=== PATIENT | female | born 1970 | race Two or more races ===

== ENCOUNTER → 2024-07-04 | Outpatient (CLI) | payer OTHER, SELFPAY ==
[2024-07-04 17:39] LABS: Glucose Estimated Average 180 mg/dL (80-131); Hemoglobin A1C 7.9 % Hgb (4.8-6.0); Parathyroid Hormone Intact 38.3 pg/ml (18.5-88.0)
[2024-07-04 17:41] LABS: Alanine Aminotransferase 25 U/L (10-49); Albumin/Globulin Ratio 1.9 (1.2-2.2); Alkaline Phosphatase 94 U/L (46-116); Anion Gap 10 (7-16); Aspartate Amino Transferase 18 U/L (0-34); BUN/Creatinine Ratio 38 Ratio (12-20); Bilirubin,Total 0.3 mg/dL (0.3-1.2); Blood Urea Nitrogen 45 mg/dL (9-23); Calcium 9.1 mg/dL (8.3-10.6); Calcium (Corrected) 9.1 mg/dL (8.5-10.1); Carbon Dioxide 26.6 mMol/L (20.0-31.0); Cardiac Risk Estimate 3.8 RATIO (3.7-5.6); Chloride 109 mMol/L (98-107); Cholesterol 164 mg/dL (132-200); Creatinine (Component) 1.2 mg/dL (0.6-1.3); Globulin 2.1 gm/dL (2.3-3.5); Glucose 190 mg/dL (74-106); HDL Cholesterol 43 mg/dL (40-60); LDL Cholesterol,Calculated 42 mg/dL (0-130); Osmolality,Calculated 307 (275-295); Potassium 3.5 mMol/L (3.4-5.1); Sodium 146 mMol/L (136-145); Total Protein 6.1 gm/dL (5.7-8.2); Triglycerides 393 mg/dL (30-150); eGFR 54 See Note
[2024-07-04 18:02] LABS: Folate 14.72 ng/mL (>5.38); Vitamin B12 > 2000 pg/mL (211-911)
== END | disposition home or self-care (01) ==
PROVIDERS: PCP Specialist; Referring Provider Specialist; Visit Provider Specialist
DX: E11.69 Type 2 diabetes mellitus with other specified complication (principal); E55.9 Vitamin D deficiency, unspecified; D51.1 Vitamin B12 deficiency anemia due to selective vitamin B12 malabsorption with proteinuria
CPT/HCPCS: 36415; 80053; 80061; 82043; 82306; 82570; 82607; 82746; 83036; 83970

== ENCOUNTER 2024-07-05 12:39 | Inpatient (IN) | payer OTHER, SELFPAY ==
[2024-07-05] VITALS (34 sets, daily range): BP systolic 66–170; BP diastolic 44–87; PULSE 79–96; RESP 10–25; TEMP 35–37.3; O2SAT 0–100; BMI 30.9
[2024-07-05] MEDS: SODIUM CHLORIDE 0.9% 1000 ML 1,000 ML 999 ML IV ×2 (12:45→13:19)
--- NOTE | 2024-07-05 12:45 | PC.NURSE ---
ND BIBA; PER EMS REPORT, PT COMING IN FORM HOME S/P AMS; PT WAS NORMAL GS 15 AT 0900 BEFORE GOING TO SLEEP BUT WHEN AMILY TRIED TO WAKE PT UP AT 1200, PT WAS UNRESPONSIVE EVEN TO PAINFUL STIMULI. PT CURRENTLY A GCS OF 3. PT SATTING AT 95% ON 15L NRB. PT'S FSBS IS 292. PT HAS PMH OF HYPERTENSION, DM, L BKA, AND NEUROPATHY. WE GAVE PT 2MG OF NARCAN INTRANASAL- NOT EFFECTIVE. UPON ARRIVAL, PT IS STILL GCS OF 3. DR. LEVINE AT BEDSIDE GIVING ORDERS FOR INTUBATION. ED TEAM AT BEDSIDE.
[2024-07-05] MEDS: ETOMIDATE INJ 2 MG/ML VIAL 10 ML 20 MG IVP (12:48)
[2024-07-05] MEDS: ROCURONIUM INJ 10 MG/ML VIAL 10 ML 70 MG IVP (12:49)
--- NOTE | 2024-07-05 12:57 | EDNOTE_ITS ---
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 According to the paramedics, the family found the patient unresponsive in her room around noon today. On their arrival, the patient was a GCS of 3 and was breathing on her own with a respiratory rate of 10. She was placed on a 15L oxygen mask and O2 was 95%. Prehospital vital signs included a BS 292, blood pressure of 106/64, and HR of 94. The family reported that the patient?s baseline is to be awake, alert, and conversive with a GCS of 15. The last time the patient was reported to be up, walking, and talking was at approximately 08:00 AM. Family noted that the patient went back to bed around 09:00 AM, with no additional symptoms or concerns reported at that time. 1430: Patients provides additional history. States at about 04:00 AM today patient had complained of feeling constipated and was given milk of magnesia and olive oil. States at about 09:00 AM felt to urge to have a bowel movement and went to the restroom. States at about 09:30 AM he heard a thud in the restroom and found the patient leaning to the side with her head against the counter. states during that time the patient was refusing to get off the toilet due to still having to urge to have a bowel movement. States patient remained sitting on the toilet and he had placed a pillow between her head and the counter. Reportedly checked on her periodically, about every 20-30 minutes, and patient had appeared well up until 11:50 AM where she no longer was talking or responding to her name. denied patient complaining of a headache while sitting on the toilet. Related Data Home Medications ?Medication ?Instructions ?Recorded ?Confirmed pregabalin 200 mg capsule (Lyrica) 200 mg PO Q8H 06/1504/04/23 glucagon 1 mg solution for See Rx Instructions .Route .COMPLEX 03/10/21 04/04/23 injection (Glucagon Emergency Kit) rosuvastatin 5 mg tablet (Crestor) 5 mg PO QDAY 04/04/23 Amanda Bruno U-300 Insulin 30 units subcut QAM DM 2 04/04/23 04/04/23 clonidine HCl 0.2 mg PO Q8HR hypertension 04/04/23 04/04/23 metformin 1,000 mg PO BID DM 2 4 04/04/23 oxycodone-acetaminophen 7.5 mg-325 1 tab PO Q6HR PRN l eg pain 04/04/23 04/04/23 mg tablet (Percocet) semaglutide 2 mg/dose (8 mg/3 mL) 2 mg subcut QWEEK DM 2 04/04/23 04/04/23 subcutaneous pen injector (Ozempic) Previous Rx's ?Medication ?Instructions ?Recorded baclofen 20 mg tablet 20 mg PO TID PRN Muscle Spas m #0 06/18/19 tabs carvedilol 25 mg tablet 25 mg PO BID #180 tabs 04/06 chlorthalidone 25 mg tablet 25 mg PO QDAY 90 days #90 tabs 04/06/23 zinc sulfate 50 mg zinc (220 mg) 50 mg PO QDAY #30 cap s 04/06/23 capsule olmesartan 40 mg tablet 40 mg PO QDAY #90 tabs 04/07 Allergies Allergy/AdvReac Type Severity Reaction Status Date / Time Sulfa (Sulfonamide Allergy Severe HIVES Verified 03/10/21 11:12 Antibiotics) Review of Systems Review of Systems ROS Unobtainable: unobtainable due to mental status Past Medical History Past Medical History NEUROLOGIC: Positive Neurological Disorders, Transient Ischemic Attacks (TIA), Peripheral Neuropathy, Migraine and Spinal Cord Injury CARDIAC: Positive Peripheral Vascular Disease, Hypercholesterolemia, Hypertension and Varicose Veins GASTROINTESTINAL: Positive Obesity REPRODUCTIVE: Positive Previous Pregnancies MUSCULOSKELETAL: Positive Musculoskeletal Disorders and Osteomyelitis ENDOCRINE: Positive Diabetes Mellitus Type 2 and Hypoglycemia HEMATOLOGIC: Positive Anemia PSYCHO/SOCIAL: Positive Psychiatric Problems and Anxiety OTHER HISTORY: Positive MRSA and Chicken Pox Surgical History SURGICAL: Positive Tubal Ligation Social History SMOKING STATUS: Unknown if ever smoked SUBSTANCE USE: prescription drug 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 MMM. clear conjunctiva, oropharynx clear. NECK: Supple without lymphadenopathy. No stiffness or restricted ROM. HEART: Normal rate and regular rhythm, normal S1/S1, no m/r/g LUNGS: CTAB, moving air well. No crackles or wheezes are heard. ABDOMEN: Soft, nondistended with good bowel sounds heard. EXTREMITIES: Left BKA. Without cyanosis, clubbing or edema. NEUROLOGICAL: Came in obtunded, unresponsive to painful stimuli Skin: Warm and dry without any rash. Course Course Course Narrative: 1248: Sepsis alert called overhead, rectal temperature 95F Quality Measures Current suspected stage: sepsis Possible source: unknown Blood cultures ordered: completed in ED Antibiotic ordered: Yes Pertinent labs: 07/05/24 07/05/24 13:01 13:10 Lactic Acid 3.8 H mMol/L (0.4-2.0) Procalcitonin 9.44 H ng/ml (0.0-0.49) sepsis Orders Category Date Time Status Bedside Blood Glucose NOW Care 07/05/24 12:56 Active EKG (ED ONLY) *Do not use* NOW Care 07/05/24 12:56 Completed Arango to Benedict Routine Care 07/05/24 12:57 Ordered Intubation NOW Care 07/05/24 12:56 Completed Monitor Temperature Q2H Care 07/05/24 16:15 Ordered Monitor Temperature Q2H Care 07/05/24 18:15 Ordered Monitor Temperature Q2H Care 07/05/24 20:15 Ordered Monitor Temperature Q2H Care 07/05/24 22:[address] cervical spine wo con Stat Exams 07/05/24 14:[address] chest abdomen pelvis wo Stat Exams 07/05/24 14:[address] head/brain wo con Stat Exams 07/05/24 14:02 Completed CXR [XR chest 1V post procedure] Stat Exams 07/05/24 13:14 Completed EKG (ED Only) Stat Exams 07/05/24 12:56 Ordered ABG [Arterial Blood Gas] Stat Lab 07/05/24 13:15 Completed Blood Culture (Lab) Stat Lab 07/05/24 13:01 Received CBC Stat Lab 07/05/24 13:01 Completed CMP [Comprehensive Metabolic Panel] Stat Lab 07/05/24 13:10 Completed Lactate (Lactic Acid) Stat Lab 07/05/24 13:01 Completed Lactic Acid, 3 HR Stat Lab 07/05/24 16:13 Ordered Lipase Stat Lab 07/05/24 13:10 Completed Occult Blood, Stool (LAB) Stat Lab 07/05/24 13:30 Completed Partial Thromboplastin Time Stat Lab 07/05/24 13:10 Completed Procalcitonin Stat Lab 07/05/24 13:10 Completed Prothrombin Time with INR Stat Lab 07/05/24 13:10 Completed Sputum Culture and Gram Stain Stat Lab 07/05/24 12:57 Ordered Troponin I Stat Lab 07/05/24 13:10 Completed Type and Screen Stat Lab 07/05/24 14:59 Received Urinalysis Stat Lab 07/05/24 13:52 Completed Etomidate Inj [Amidate Inj] Med 07/05/24 12:43 Discontinued 20 mg .ROUTE .STK-MED ONE Etomidate Inj [Amidate Inj] Med 07/05/24 13:16 Discontinued 20 mg IVP X1 ONE Norepinephrine/D5W 8mg/250ml [Levophed in D5W 8mg/250ml Med 07/05/24 15:14 Active ] 8 mg in 250 ml IV 0.05 mcg/kg/min Rocuronium Inj [Zemuron Inj] Med 07/05/24 12:45 Discontinued 100 mg .ROUTE .STK-MED ONE Rocuronium Inj [Zemuron Inj] Med 07/05/24 13:16 Discontinued 70 mg IVP X1 ONE Sodium Chloride 0.9% 1000 ml [Ns] 1,000 ml Med 07/05/24 12:55 Discontinued IV 999 mls/hr Sodium Chloride 0.9% 1000 ml [Ns] 1,000 ml Med 07/05/24 12:57 Discontinued IV 999 mls/hr Sodium Chloride Rt Terrie 10% [NS Rt Terrie 10%] Med 07/05/24 12:56 Discontinued 5 ml INH X1 ONE cefTRIAXone/D5w 1gm IV premix [Rocephin/D5w 1gm IV Med 07/05/24 12:55 Discontinued premix] 1 gm in 50 ml IV X1 Sputum Induction PRN RT 07/05/24 13:00 Ordered Ventilator [Volume Ventilator] Stat RT 07/05/24 Active Vital Signs Vital signs: Vital Signs Temperature 95.0 F L 07/05/24 12:45 Pulse Rate 88 07/05/24 12:45 Respiratory Rate 16 07/05/24 12:45 Blood Pressure 72/46 L 07/05/24 12:45 Pulse Oximetry (%) 100 07/05/24 12:45 Oxygen Delivery Method Mechanical Ventilation 07/05/24 12:45 Oxygen Flow Rate 60 07/05/24 12:45 Fraction of Inspired Oxygen 100 07/05/24 12:45 Procedures -ED Intubation sedative: Etomidate Mg Given: 20 paralytic: Rocuronium Mg Given: 70 Laryngoscope: Ezequiel ET Tube Size: 7.5 ET Tube Uncuffed: No Tube Secured Depth (cm): 23 Tube Secured Location: other (gum) Tube Placement Confirmation: visualized tube passing through cords, equal breath sounds bilaterally, no breath sounds over epigastrium and confirmation by capnometry Patient Tolerated Procedure: well and no complications Intubation Complications: none Altered Mental Status MDM Narrative MDM Narrative:: Nara Massey am scribing for and in the presence of Dr. Crane. 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 Sinus rhythm, rate 84, normal axis, normal intervals, no acute ischemic changes, no STEMI. ) Lab and/or radiology exams considered but not ordered:: None Interpretation Summary: Ordering Physician: Doron Crane MD Date of Service: 07/05/24 Procedure(s): XR chest 1V post procedure Accession Number(s): [id number] cc: Doron Crane MD; Chaka Romero MD~ Examination: AP chest single view Technique: AP portable supine chest single view Exam date and time: July 05, 2024 1321 hrs. Comparison April 14, 2023 Indications: Hypoxic respiratory failure post intubation Findings: The endotracheal tube is directed near the origin of the right mainstem bronchus Orogastric tube in the stomach satisfactory position Mild to moderate enlargement left ventricle Moderate vascular congestion. No aspiration pneumonia Impression: Recommend retracting the endotracheal tube 2 cm Dictated By:Chaka Romero MD Signed By:<Electronically signed by Chaka Romero MD in OV>07/05/24 1411 Ordering Physician: Doron Crane MD Date of Service: 07/05/24 Procedure(s): CT head/brain wo [facility] Accession Number(s): [id number] cc: Shivam Vivar MD; Doron Crane MD; Chaka Romero MD~ Examination: CT brain head without contrast. 2-D sagittal coronal reconstructions Date and time of exam:July 05, 2024 at 1541 hrs. Indications: Hypoxic respiratory failure, patient found down unconscious today CTDI: vol (mGy):55.3 DLP: (mGycm):1087 Technique: Multiple CT axial sections of the brain have been obtained, 5 mm slice thickness. Contrast has not been administered. 2-D sagittal, coronal reconstructions have been obtained Low dose protocols were performed. One or more of the following dose reduction techniques were used; automated exposure control, adjustment of the mA and/or KV according to patient size, use of iterative reconstruction technique. Findings: No significant ventricular enlargement. Low density areas in both cerebral hemispheres which appear chronic Intra-axial or extra-axial hemorrhage density is not seen. No mass effect or midline shift Basal cisterns are not remarkable. Fourth ventricle is midline. Cranial vault intact. Impression: Negative for acute hemorrhage, mass effect or midline shift Brain MRI follow-up would best assess for ischemic/anoxic change Dictated By:Chaka Romero MD Signed By:<Electronically signed by Chaka Romero MD in OV>07/05/24 1600 Ordering Physician: Doron Crane MD Date of Service: 07/05/24 Procedure(s): CT cervical spine wo con Accession Number(s): [id number] cc: Shivam Vivar MD; Doron Crane MD; Chaka Romero MD~ Examination: CT cervical spine without contrast 2-D sagittal reconstructions 2-D coronal reconstructions 3-D reconstructions. Exam date and time:02/04/2025 1541 hrs. Indications: Patient found down unconscious today neck pain CTDI:vol (mGy) 8.44 DLP: (mGycm) 170 Technique: Multiple 2 mm axial sections of the cervical spine have been obtained. The coronal and sagittal reconstructions have been obtained. 3-D reconstructions have been obtained. Low dose protocols were performed. One or more of the following dose reduction techniques were used; automated exposure control, adjustment of the mA and/or KV according to patient size, use of iterative reconstruction technique. Findings: Axial sections demonstrate intact base of the skull. C1 exhibit satisfactory relationship to the odontoid. No acute cervical vertebral body fracture seen. Alignment posterior spinous processes satisfactory. Marked disc narrowing with chronic wedging C5-C6 C5-C6 extruded ossified disc fragments left paracentral axial image 71, measuring 5 mm and central axillary 74, 5 mm producing severe spinal stenosis Impression: No acute cervical fracture. Severe acquired spinal stenosis C5-C6, recommend elective MRI cervical spine follow-up Dictated By:Chaka Romero MD Signed By:<Electronically signed by Chaka Romero MD in OV>07/05/24 1603 Ordering Physician: Doron Crane MD Date of Service: 07/05/24 Procedure(s): CT chest abdomen pelvis wo Accession Number(s): [id number] cc: Shivam Vivar MD; Doron Crane MD; Chaka Romero MD~ Examination: CT chest, without intravenous contrast. CT abdomen, without intravenous contrast. CT pelvis, without intravenous contrast. 2-D sagittal and coronal reconstructions. 3-D reconstructions. Date and time of exam:July 05, 2024 1543 hrs. Indications: Patient found down unconscious today, hypoxic respiratory failure, patient is diabetic CTDI vol (mgy) 13.9 DLP (MGycm)902 Technique: Multiple CT images, 3.0 mm slice thickness, obtained chest, abdomen, pelvis, with the high-resolution 64 slice scanner.. Sagittal and coronal 2-D reconstructions are obtained. 3-D reconstructions Low dose protocols were performed. One or more of the following dose reduction techniques were used; automated exposure control, adjustment of the mA and/or KV according to patient size, use of iterative reconstruction technique. Findings: 20 mm left thyroid nodule Thoracic aorta pulmonary arteries intact Significant calcification left main left anterior descending coronary artery No pneumothorax Bibasilar pneumonia consistent with aspiration pneumonia Orogastric tube in the stomach No liver or splenic lesion Absent gallbladder No pancreatic mass Nodular thickening left adrenal gland 13 mm common hepatic duct Mild renal parenchymal scar formation No renal or ureteral calculi, no hydronephrosis Normal appendix Abdominal aorta intact No free blood in the abdomen Anteverted uterus with uterine fundal calcifications Urinary bladder contracted around a Arango catheter, air density in the urinary bladder, clinical correlation advised Prominent osteopenia, advanced disc narrowing L5-S1 Old bilateral rib fractures, old sacral insufficiency fractures Impression: Bibasilar pneumonia, consider aspiration pneumonia Enlarged common hepatic duct, recommend hepatobiliary sonography follow-up Bilateral renal parenchymal scar formation Normal appendix No bowel obstruction or free air Dictated By:Chaka Romero MD Signed By:<Electronically signed by Chaka Romero MD in OV>07/05/24 8657 Medications / Prescriptions Medications or Prescriptions considered but not ordered:: None Medication administrations:: Medication Administration History Acetaminophen (Acetaminophen Supp 650 Mg Supp) 650 mg MI Q6HR PRN PRN Reason: Fever > 100.4 Stop: 08/04/24 16:38 Heparin Sodium (Porcine) (Heparin Sod Inj 5000 Unit/Ml Vial) 5,000 unit SC Q8HR MOOSE Stop: 07/19/24 21:59 Norepinephrine/Dextrose (Levophed In D5w 8mg/250ml) 8 mg in 250 mls @ 6.732 mls/hr IV .Q24H PRN; Protocol PRN Reason: PER PROTOCOL Stop: 08/04/24 15:13 Last Titration: 07/05/24 17:35 Dose: 0.15 mcg/kg/min, 20.195 mls/hr Documented By: Titration: 07/05/24 17:15 Dose: 0.15 mcg/kg/min, 20.195 mls/hr Documented By: Titration: 07/05/24 17:00 Dose: 0.15 mcg/kg/min, 20.195 mls/hr Documented By: Titration: 07/05/24 16:55 Dose: 0.15 mcg/kg/min, 20.195 mls/hr Documented By: Titration: 07/05/24 16:50 Dose: 0.15 mcg/kg/min, 20.195 mls/hr Documented By: Titration: 07/05/24 16:45 Dose: 0.15 mcg/kg/min, 20.195 mls/hr Documented By: Titration: 07/05/24 16:40 Dose: 0.15 mcg/kg/min, 20.195 mls/hr Documented By: Titration: 07/05/24 16:30 Dose: 0.13 mcg/kg/min, 17.502 mls/hr Documented By: Titration: 07/05/24 16:25 Dose: 0.11 mcg/kg/min, 14.81 mls/hr Documented By: Titration: 07/05/24 16:20 Dose: 0.09 mcg/kg/min, 12.117 mls/hr Documented By: Titration: 07/05/24 16:15 Dose: 0.07 mcg/kg/min, 9.424 mls/hr Documented By: Titration: 07/05/24 16:00 Dose: 0.07 mcg/kg/min, 9.424 mls/hr Documented By: Titration: 07/05/24 15:30 Dose: 0.07 mcg/kg/min, 9.424 mls/hr Documented By: Admin: 07/05/24 15:19 Dose: 0.05 mcg/kg/min, 6.732 mls/hr Documented By: BHARGAV Lactated Ringer's (Lactated Ringers) 1,000 mls @ 999 mls/hr IV .Q1H1M ONE Stop: 07/05/24 18:05 Last Admin: 07/05/24 17:35 Dose: 999 mls/hr Documented By: GM Piperacillin Sod/Tazobactam (Sod 4.5 gm/ Sodium Chloride) 100 mls @ 200 mls/hr IV Q8HR MOOSE Stop: 07/12/24 21:59 Vancomycin HCl 1,500 mg/ (Sodium Chloride) 500 mls @ 200 mls/hr IV X1 ONE Stop: 07/05/24 19:59 Pantoprazole Sodium (Pantoprazole Inj 40 Mg Vial) 40 mg IV QDAY MOOSE Stop: 08/04/24 17:14 Last Admin: 07/05/24 17:32 Dose: 40 mg Documented By: Pharmacy Consult (Vancomycin Pharmacy To Dose 1 Each Each) 1 each IV QDAY [facility] Stop: 08/04/24 17:14 Discontinued Medications Etomidate (Etomidate Inj 2 Mg/Ml Vial 10 Ml) Confirm Administered Dose 20 mg .ROUTE .STK-MED ONE Stop: 07/05/24 12:44 Last Admin: 07/05/24 13:19 Dose: Not Given Documented By: Non-Admin Reason: Duplicate Medication on eMAR Etomidate (Etomidate Inj 2 Mg/Ml Vial 10 Ml) 20 mg IVP X1 ONE Stop: 07/05/24 13:17 Last Admin: 07/05/24 12:48 Dose: 20 mg Documented By: GM Sodium Chloride (Ns) 1,000 mls @ 999 mls/hr IV .Q1H1M ONE Stop: 07/05/24 13:55 Last Infusion: 07/05/24 13:26 Dose: Infused Documented By: Admin: 07/05/24 12:45 Dose: 999 mls/hr Documented By: GM Ceftriaxone Sodium/Dextrose (Rocephin/D5w 1gm Iv Premix) 1 gm in 50 mls @ 100 mls/hr IV X1 ONE Stop: 07/05/24 13:24 Last Infusion: 07/05/24 13:59 Dose: Infused Documented By: Admin: 07/05/24 13:25 Dose: 100 mls/hr Documented By: WILLIAM Sodium Chloride (Ns) 1,000 mls @ 999 mls/hr IV .Q1H1M ONE Stop: 07/05/24 13:57 Last Infusion: 07/05/24 14:15 Dose: Infused Documented By: Admin: 07/05/24 13:19 Dose: 999 mls/hr Documented By: WILLIAM Rocuronium [place] (Rocuronium Inj 10 Mg/Ml Vial 10 Ml) Confirm Administered Dose 100 mg .ROUTE .STK-MED ONE Stop: 07/05/24 12:46 Last Admin: 07/05/24 13:19 Dose: Not Given Documented By: WILLIAM Non-Admin Reason: Duplicate Medication on eMAR Rocuronium [place] (Rocuronium Inj 10 Mg/Ml Vial 10 Ml) 70 mg IVP X1 ONE Stop: 07/05/24 13:17 Last Admin: 07/05/24 12:49 Dose: 70 mg Documented By: WILLIAM Co-signed By: FRANCISCO Sodium Chloride (Sodium Chloride Rt 10% 15 Ml Nebu) 5 ml INH X1 ONE Stop: 07/05/24 12:57 See above Consultations Consultation(s) initiated? (list below): Yes Consultation #1 (Physician, Specialty, Details): I spoke with resident Dr. Rockwell working with agricultural service worker Dr. Steinberg. Discussed patients PMHx, HPI, ED course, exam findings, labs, and radiology results. The hospitalist agree to accept the patient for admission. Time: 16:15 Diagnosis Differential diagnosis altered mental status: altered mental status, dementia, hypoglycemia, hyponatremia, subarachnoid hemorrhage and sepsis Most likely diagnosis given after review of the tests above:: Respiratory failure AMS Anemia Sepsis Admission Indicated Admission indicated?: indicated Admission Request Was there a request for admission?: Yes Admission Attestation Admission request attestation: Discussed case with [] from Hospitalist service regarding admission. Discussed patients ED course, exam findings, labs, and radiology results. The Hospitalist [agrees,declines] to accept the patient for admission. Disposition Plan Disposition Plan: Admit Critical Care Time Critical Care Time Critical Care Time: Yes Total Critical Care Time (min.): 35 Attestation: The high probability of sudden, clinically significant deterioration in the patient's condition required the highest level of my preparedness to intervene urgently. The services I provided to this patient were to treat and/or prevent clinically significant deterioration. Services included the following: chart data review, reviewing nursing notes and/or old charts, documentation time, data warehouse consultant collaboration regarding findings and treatment options, medication orders and management, direct patient care, vital sign assessments and ordering, interpreting and reviewing diagnostic studies and lab tests. Aggregate critical care time includes only time during which I was engaged in work directly related to the patient's care, as described above, whether at bedside or elsewhere in the Emergency Department. It did not include time spent performing other reported procedures or the services of residents, students, nurses or physician assistants. Discharge Plan Plan Patient Disposition: Admit Acute Care w/in Hospital Problem List Clinical Impression: Respiratory failure, AMS (altered mental status), Sepsis, Anemia
--- NOTE | 2024-07-05 13:14 | XR_ITS ---
Examination: AP chest single view Technique: AP portable supine chest single view Exam date and time: July 05, 2024 1321 hrs. Comparison April 14, 2023 Indications: Hypoxic respiratory failure post intubation Findings: The endotracheal tube is directed near the origin of the right mainstem bronchus Orogastric tube in the stomach satisfactory position Mild to moderate enlargement left ventricle Moderate vascular congestion. No aspiration pneumonia Impression: Recommend retracting the endotracheal tube 2 cm
[2024-07-05 13:16] LABS: Lactate (Lactic Acid) 3.8 mMol/L (0.4-2.0)
[2024-07-05 13:20] LABS: Basophils % (Auto) 0 % (0-2.5); Eosinophils % (Auto) 0 % (0-10); Hematocrit 32.8 % (36.0-46.0); Hemoglobin 9.7 g/dL (12.0-16.0); Immature Granulocytes % (Auto) 1 % (0-0); Immature Granulocytes Auto 0.07 Thou/mm3 (0.00-0.00); Lymphocytes # (Auto) 0.9 Thou/mm3 (1.0-4.8); Lymphocytes % (Auto) 6 % (10-50); Mean Corpuscular HGB Conc 29.6 g/dl (31.0-37.0); Mean Corpuscular Hemoglobin 21.7 pg (25.0-35.0); Mean Corpuscular Volume 74 fL (80-100); Monocytes # (Auto) 1.5 Thou/mm3 (0.0-0.8); Monocytes % (Auto) 10 % (0-12); Neutrophils # (Auto) 12.3 Thou/mm3 (1.8-7.7); Neutrophils % (Auto) 83 % (37-80); Nucleated Red Blood Cell # 0.11 Thou/mm3 (0.00-0.00); Nucleated Red Blood Cell % 1 /100 WBC (0); Platelet Count 357 Thou/mm3 (140-440); RDW Standard Deviation 56.4 fL (36.4-46.3); Red Blood Count 4.46 Miln/mm3 (4.00-5.20); White Blood Count 14.8 Thou/mm3 (3.6-11.0)
[2024-07-05 13:22] LABS: Base Excess -7 (-3-3); HCO3 20 mEq/L (20-26); Inspired Oxygen, FIO2 100 %; O2 Saturation 98 % (91-98); PCO2 52 mmHg (32.0-48.0); PO2 379 mmHg (83-108); pH, Arterial 7.21 (7.35-7.45)
[2024-07-05 13:23] LABS: Allen Test Not Performed; Puncture Site Right Brachial
[2024-07-05] MEDS: cefTRIAXone/D5w 1gm IV premix 1 GM/50 ML BAG IV (13:25)
[2024-07-05 13:35] LABS: INR 0.9 (0.9-1.3); Partial Thromboplastin Time 24.6 Seconds (22.0-36.0); Prothrombin Time 10.4 Seconds (9.0-12.2)
[2024-07-05 13:45] LABS: Alanine Aminotransferase 172 U/L (10-49); Albumin, Serum 3.6 gm/dL (3.5-5.0); Albumin/Globulin Ratio 1.9 (1.2-2.2); Alkaline Phosphatase 80 U/L (46-116); Anion Gap 15 (7-16); Aspartate Amino Transferase 127 U/L (0-34); BUN/Creatinine Ratio 37 Ratio (12-20); Bilirubin,Total 0.2 mg/dL (0.3-1.2); Blood Urea Nitrogen 66 mg/dL (9-23); Calcium 8.3 mg/dL (8.3-10.6); Calcium (Corrected) 8.6 mg/dL (8.5-10.1); Carbon Dioxide 18.9 mMol/L (20.0-31.0); Chloride 111 mMol/L (98-107); Creatinine (Component) 1.8 mg/dL (0.6-1.3); Estimated Creatinine Clearance 31.6 mL/min (>60); Globulin 1.9 gm/dL (2.3-3.5); Glucose 294 mg/dL (74-106); Lipase 86 U/L (12-53); Osmolality,Calculated 318 (275-295); Potassium 3.7 mMol/L (3.4-5.1); Procalcitonin 9.44 ng/ml (0.0-0.49); Sodium 145 mMol/L (136-145); Total Protein 5.5 gm/dL (5.7-8.2); Troponin I < 0.020 ng/mL (0.0-0.045); eGFR 33 See Note
--- NOTE | 2024-07-05 14:02 | XR_ITS ---
Examination: CT brain head without contrast. 2-D sagittal coronal reconstructions Date and time of exam:July 05, 2024 at 1541 hrs. Indications: Hypoxic respiratory failure, patient found down unconscious today CTDI: vol (mGy):55.3 DLP: (mGycm):1087 Technique: Multiple CT axial sections of the brain have been obtained, 5 mm slice thickness. Contrast has not been administered. 2-D sagittal, coronal reconstructions have been obtained Low dose protocols were performed. One or more of the following dose reduction techniques were used; automated exposure control, adjustment of the mA and/or KV according to patient size, use of iterative reconstruction technique. Findings: No significant ventricular enlargement. Low density areas in both cerebral hemispheres which appear chronic Intra-axial or extra-axial hemorrhage density is not seen. No mass effect or midline shift Basal cisterns are not remarkable. Fourth ventricle is midline. Cranial vault intact. Impression: Negative for acute hemorrhage, mass effect or midline shift Brain MRI follow-up would best assess for ischemic/anoxic change
--- NOTE | 2024-07-05 14:16 | XR_ITS ---
Examination: CT chest, without intravenous contrast. CT abdomen, without intravenous contrast. CT pelvis, without intravenous contrast. 2-D sagittal and coronal reconstructions. 3-D reconstructions. Date and time of exam:July 05, 2024 1543 hrs. Indications: Patient found down unconscious today, hypoxic respiratory failure, patient is diabetic CTDI vol (mgy) 13.9 DLP (MGycm)902 Technique: Multiple CT images, 3.0 mm slice thickness, obtained chest, abdomen, pelvis, with the high-resolution 64 slice scanner.. Sagittal and coronal 2-D reconstructions are obtained. 3-D reconstructions Low dose protocols were performed. One or more of the following dose reduction techniques were used; automated exposure control, adjustment of the mA and/or KV according to patient size, use of iterative reconstruction technique. Findings: 20 mm left thyroid nodule Thoracic aorta pulmonary arteries intact Significant calcification left main left anterior descending coronary artery No pneumothorax Bibasilar pneumonia consistent with aspiration pneumonia Orogastric tube in the stomach No liver or splenic lesion Absent gallbladder No pancreatic mass Nodular thickening left adrenal gland 13 mm common hepatic duct Mild renal parenchymal scar formation No renal or ureteral calculi, no hydronephrosis Normal appendix Abdominal aorta intact No free blood in the abdomen Anteverted uterus with uterine fundal calcifications Urinary bladder contracted around a Arango catheter, air density in the urinary bladder, clinical correlation advised Prominent osteopenia, advanced disc narrowing L5-S1 Old bilateral rib fractures, old sacral insufficiency fractures Impression: Bibasilar pneumonia, consider aspiration pneumonia Enlarged common hepatic duct, recommend hepatobiliary sonography follow-up Bilateral renal parenchymal scar formation Normal appendix No bowel obstruction or free air
--- NOTE | 2024-07-05 14:16 | XR_ITS ---
Examination: CT cervical spine without contrast 2-D sagittal reconstructions 2-D coronal reconstructions 3-D reconstructions. Exam date and time:02/04/2025 1541 hrs. Indications: Patient found down unconscious today neck pain CTDI:vol (mGy) 8.44 DLP: (mGycm) 170 Technique: Multiple 2 mm axial sections of the cervical spine have been obtained. The coronal and sagittal reconstructions have been obtained. 3-D reconstructions have been obtained. Low dose protocols were performed. One or more of the following dose reduction techniques were used; automated exposure control, adjustment of the mA and/or KV according to patient size, use of iterative reconstruction technique. Findings: Axial sections demonstrate intact base of the skull. C1 exhibit satisfactory relationship to the odontoid. No acute cervical vertebral body fracture seen. Alignment posterior spinous processes satisfactory. Marked disc narrowing with chronic wedging C5-C6 C5-C6 extruded ossified disc fragments left paracentral axial image 71, measuring 5 mm and central axillary 74, 5 mm producing severe spinal stenosis Impression: No acute cervical fracture. Severe acquired spinal stenosis C5-C6, recommend elective MRI cervical spine follow-up
[2024-07-05 14:41] LABS: OBS Performed By MADRG3; OBS QC OK? Yes; Occult Blood, Stool Positive (Negative)
--- NOTE | 2024-07-05 14:50 | PC.NURSE ---
RT CALLED; PT NEEDS TO BE TRANSPORTED TO CT. PT INTUBATED. PER RT, WILL COME SOON.
[2024-07-05 15:12] LABS: Collection Type, Urine Catheter; RBC,Urine 0 /hpf (0-3)
[2024-07-05] MEDS: Norepinephrine/D5W 8mg/250ml 8 MG/250 ML BAG 6.732 MG IV (15:19)
[2024-07-05 15:51] LABS: Bilirubin,Urine Negative (Negative); Blood,Urine Negative (Negative); Budding Yeast,Urine Present; Color,Urine Lt-Yellow (Lt Yel-Yel); Glucose, Urine 4+ (Negative); Ketones,Urine Negative (Negative); Leukocyte Esterase,Urine Positive (Negative); Nitrite,Urine Negative (Negative); Protein,Urine 1+ (Neg - Trace); Specific Gravity,Urine 1.024 (1.001-1.035); Squamous Epithelial Cell,Urine 1 /hpf (0-5); Urobilinogen,Urine Negative mg/dL (0.0-1.0); WBC,Urine 9 /hpf (0-5)
[2024-07-05 15:52] LABS: Clarity,Urine Hazy (Clear/Hazy)
--- NOTE | 2024-07-05 16:00 | PC.NURSE ---
PRIMARY RN BACK AT THIS TIME FROM LUNCH BREAK.
[2024-07-05 16:13] LABS: Reflex Lactate? Y
--- NOTE | 2024-07-05 16:21 | PC.NURSE ---
RT RETRACTED PT'S ETT BY 2CM, PER DR. BRAUN'S ORDERS.
--- NOTE | 2024-07-05 17:03 | XR_ITS ---
Examination: CTA carotids with intravenous contrast CTA brain, head with intravenous contrast. 2-D sagittal, coronal reconstructions. 3-D reconstructions. Exam date and time: July 05, 2024 1800 hrs. Indications: Hypoxic respiratory failure, patient found down unconscious today CTDI: vol (mGy) 37.8 DLP: (mGycm) 163 Technique: Multiple CTA axial brain, head carotid images post intravenous contrast injection 100 cc, [id number]. 2-D sagittal, coronal reconstructions. 3-D reconstructions, 3-D post processing including vascular maximum intensity projection images. Low dose protocols were performed. One or more of the following dose reduction techniques were used; automated exposure control, adjustment of the mA and/or KV according to patient size, use of iterative reconstruction technique. Findings: Opacity in both lung morris consistent with pneumonia Thyromegaly with bilateral well-defined thyroid nodules Moderate calcification right carotid bifurcation 20-40% stenosis right carotid bifurcation origin right internal carotid artery Heavy calcification left carotid bifurcation 50% stenosis including origin left internal carotid artery No critical vertebral artery stenoses No cerebral large vessel arterial occlusions, thrombus dissection or cerebral aneurysm Impression: Aspiration pneumonia Hepatomegaly with thyroid nodules 20-40% stenosis origin right internal carotid artery 50% stenosis origin left internal carotid artery No cerebral large vessel arterial occlusions
--- NOTE | 2024-07-05 17:10 | PD.RESHP ---
Documentation for date of: 07/05/24 HPI History of Present Illness History of present illness: 54-year-old female with past medical history of insulin-dependent diabetes type 2 with complications, neuropathy, sp left BKA with severe pain for which patient takes Percocet, wheelchair-bound, hypertension and hyperlipidemia who was brought in by ambulance due to acute encephalopathy. Per patient's patient's baseline GCS is 15, she was in her usual state of health until this morning around 9 AM when she started complaining of abdominal pain and an urge to defecate. Patient's helped her to the restroom where she endorsed constipation and difficulty passing stool, has been returned about 1 hour later and patient was still on the toilet, tired but able to communicate properly, it is unclear how long after that patient heard noise coming from the bathroom when he went to check-in patient was still sitting on the toilet, however her head was against the sink and it seemed like she had hit her head, patient was still coherent but somnolent, patient's then proceeded to put a pillow between her head and the sink and left again. After approximately half hour to 45 minutes went to check in again and found patient unresponsive, still sitting on the toilet, he put her on the floor and dialed 911, checked blood glucose which was aprox 650 and he gave insulin patient then had a large bowel movement, not melanotic, not bloody, patient was having shallow and slow breathing's and was unresponsive to sternal rub attempted by . EMS upon arrival found patient on the bathroom floor unconscious, GCS of 3, respiratory rate around 5, 6 patient was given Narcan intranasally x 2 and brought to the ED. On arrival to the ED: Patient was hypotensive BP 72/46, pulse 88, patient was very cold, rectal temperature showed 95, O2 sat was not able to be measured, patient was immediately intubated at approximately 1 PM. Pertinent labs: Leukocytosis WBC 14,000, creatinine 1.8, glucose 294, osmolatiry 318, lactic acid 3.8, AST 127, ALT 172, procalcitonin 9.4. Head CT showed no acute hemorrhage, neck CT showed no vertebral fracture, chest abdomen pelvis CT notable for pneumonia, rest within normal limits. Patient will be admitted to ICU for further management of acute hypoxic respiratory failure, we will order head neck CTA and MRI to rule out large vessel occlusion/stroke, EEG and U tox as well. Currently patient's GCS is 3, pupils nonreactive to light. Patient is currently off sedation. Review of Systems Review of Systems ROS Unobtainable: unobtainable due to mental status Exam Vital Signs Temp Pulse Resp BP Pulse Ox O2 Del Method O2 Flow Rate 98.4 F 93 20 103/61 100 Mechanical Ventilation 60 07/05/24 16:00 07/05/24 16:05 07/05/24 16:00 07/05/24 16:05 07/05/24 16:05 07/05/24 16:00 07/05/24 14:30 FiO2 100 07/05/24 16:05 Narrative Exam GENERAL: Intubated, not sedated, nonresponsive GCS of 3 HEENT: Normocephalic, atraumatic. Pupils nonreactive to light.? Oral mucosa dry NECK: Supple without adenopathy. Trachea midline. Nontender, carotid pulse 2+ bilaterally without bruits, no JVD.? CHEST: Heart rate and rythm normal, no murmurs, gallops auscultated. S1 & 2 normal insensity. Nontender on palpation, no deformity and no crepitus. LUNGS: Lung sounds are clear.? No wheezing, rales or ronchi.? No intercostal subcostal retraction. Mechanically ventilated ABDOMEN: Soft,symmetric, No abnormal masses palpated.? No pulsatile masses or bruits.? Bowel sounds are normoactive in all 4 quadrants. EXTREMITIES: .? No pitting edema.? No cyanosis.? Left BKA SKIN: No rashes noted. NEURO:?GCS 3 Results: Labs 07/06/24 07:30 07/06/24 07:30 Labs: Short CBC 07/05/24 Range/Units 13:01 WBC 14.8 H (3.6-11.0) Thou/mm3 Hgb 9.7 L (12.0-16.0) g/dL Hct 32.8 L (36.0-46.0) % Plt Count 357 (140-440) Thou/mm3 BMP 07/05/24 13:10 Sodium 145 Potassium 3.7 Chloride 111 H Carbon Dioxide 18.9 L BUN 66 H Creatinine 1.8 H D Glucose 294 H D Calcium 8.3 Cardiac Enzymes 07/05/24 Range/Units 13:10 Troponin I < 0.020 (0.0-0.045) ng/mL Liver Function 07/05/24 Range/Units 13:10 Total Bilirubin 0.2 L (0.3-1.2) mg/dL AST 127 H (0-34) U/L ALT 172 H (10-49) U/L Alkaline Phosphatase 80 (46-116) U/L Albumin 3.6 (3.5-5.0) gm/dL Urine 07/05/24 Range/Units 13:52 Urine Color Lt-Yellow (Lt Yel-Yel) Urine Clarity Hazy (Clear/Hazy) Urine pH 6.0 (5.0-7.0) Ur Specific Seltzer 1.024 (1.001-1.035) Urine Protein 1+ A (Neg - Trace) Urine Glucose (UA) 4+ A (Negative) ABG Interpretation ABG results: 07/05/24 13:15 ABG pH 7.21 L ABG pCO2 52 H ABG pO2 379 H ABG HCO3 20 ABG O2 Saturation 98 ABG Base Excess -7 L Quality Measures Quality Measures sepsis Current suspected stage: sepsis Possible source: pulmonary Blood cultures ordered: yes Antibiotic ordered: Yes Medications Home Medications and Allergies Home Medications ?Medication ?Instructions ?Recorded ?Confirmed ?Type pregabalin 200 mg capsule (Lyrica) 200 mg PO Q6HR 06/16/19 07/05/24 History glucagon 1 mg solution for See Rx Instructions .Route .COMPLEX 03/10/21 04/04/23 History injection (Glucagon Emergency Kit) rosuvastatin 5 mg tablet (Crestor) 5 mg PO QDAY 03/10/21 07/05/24 History Held on 07/05/24. Instructions: Doctor's Order Amanda Bruno U-300 Insulin 30 units subcut BID DM 2 04/04/23 07/05/24 History clonidine HCl 0.2 mg PO QDAY hypertension 04/04/23 07/05/24 History metformin 500 mg PO BID DM 2 04/04/23 07/05/24 History oxycodone-acetaminophen 7.5 mg-325 1 tab PO Q6HR PRN leg pain 04/04/23 07/05/24 History mg tablet (Percocet) semaglutide 2 mg/dose (8 mg/3 mL) 2 mg subcut QWEEK DM 2 04/04/23 07/05/24 History subcutaneous pen injector (Ozempic) amlodipine 5 mg tablet 5 mg PO QDAY 07/05/24 07/05/24 History dapagliflozin propanediol 10 mg 10 mg PO QDAY 07/05/24 07/05/24 History tablet (Farxiga) insulin lispro 200 unit/mL (3 mL) 20 unit subcut ACHS 07/05/24 07/05/24 History subcutaneous pen (Humalog KwikPen U-200 Insulin) olmesartan 40 1 tab PO QDAY 07/05/24 07/05/24 History mg-hydrochlorothiazide 25 mg tablet oxcarbazepine 150 mg tablet 150 mg PO QDAY 07/05/24 07/05/24 History potassium chloride 20 mEq 20 meq PO QDAY 07/05/24 07/05/24 History tablet,extended release Allergies Allergy/AdvReac Type Severity Reaction Status Date / Time Sulfa (Sulfonamide Allergy Severe HIVES Verified 03/10/21 11:12 Antibiotics) Visit Medications Acetaminophen (Acetaminophen Supp 650 Mg Supp) 650 mg IL Q6HR PRN PRN Reason: Fever > 100.4 Stop: 08/04/24 16:38 Heparin Sodium (Porcine) (Heparin Sod Inj 5000 Unit/Ml Vial) 5,000 unit SC Q8HR MOOSE Stop: 07/19/24 21:59 Norepinephrine/Dextrose (Levophed In D5w 8mg/250ml) 8 mg in 250 mls @ 6.732 mls/hr IV .Q24H PRN; Protocol PRN Reason: PER PROTOCOL Stop: 08/04/24 15:13 Last Titration: 07/05/24 17:00 Dose: 0.15 mcg/kg/min, 20.195 mls/hr Lactated Ringer's (Lactated Ringers) 1,000 mls @ 999 mls/hr IV .Q1H1M ONE Stop: 07/05/24 18:05 Piperacillin Sod/Tazobactam (Sod 4.5 gm/ Sodium Chloride) 100 mls @ 200 mls/hr IV Q8HR MOOSE Stop: 07/12/24 21:59 Pantoprazole Sodium (Pantoprazole Inj 40 Mg Vial) 40 mg IV QDAY MOOSE Stop: 08/04/24 17:14 Pharmacy Consult (Vancomycin Pharmacy To Dose 1 Each Each) 1 each IV QDAY MOOSE Stop: 08/04/24 17:14 Discontinued Medications Etomidate (Etomidate Inj 2 Mg/Ml Vial 10 Ml) 20 mg IVP X1 ONE Stop: 07/05/24 13:17 Last Admin: 07/05/24 12:48 Dose: 20 mg Sodium Chloride (Ns) 1,000 mls @ 999 mls/hr IV .Q1H1M ONE Stop: 07/05/24 13:55 Last Infusion: 07/05/24 13:26 Dose: Infused Ceftriaxone Sodium/Dextrose (Rocephin/D5w 1gm Iv Premix) 1 gm in 50 mls @ 100 mls/hr IV X1 ONE Stop: 07/05/24 13:24 Last Infusion: 07/05/24 13:59 Dose: Infused Sodium Chloride (Ns) 1,000 mls @ 999 mls/hr IV .Q1H1M ONE Stop: 07/05/24 13:57 Last Infusion: 07/05/24 14:15 Dose: Infused Rocuronium [place] (Rocuronium Inj 10 Mg/Ml Vial 10 Ml) 70 mg IVP X1 ONE Stop: 07/05/24 13:17 Last Admin: 07/05/24 12:49 Dose: 70 mg Sodium Chloride (Sodium Chloride Rt 10% 15 Ml Nebu) 5 ml INH X1 ONE Stop: 07/05/24 12:57 Assessment & Plan Plan 54-year-old female with past medical history of insulin-dependent diabetes type 2 with complications, neuropathy, sp left BKA with severe pain for which patient takes Percocet, wheelchair-bound, hypertension and hyperlipidemia who was brought in by ambulance due to acute encephalopathy. Per patient's patient's baseline GCS is 15, she was in her usual state of health until this morning around 9 AM when she started complaining of abdominal pain and an urge to defecate. Patient's helped her to the restroom where she endorsed constipation and difficulty passing stool, has been returned about 1 hour later and patient was still on the toilet, tired but able to communicate properly, it is unclear how long after that patient heard noise coming from the bathroom when he went to check-in patient was still sitting on the toilet, however her head was against the sink and it seemed like she had hit her head, patient was still coherent but somnolent, patient's then proceeded to put a pillow between her head and the sink and left again. After approximately half hour to 45 minutes went to check in again and found patient unresponsive, still sitting on the toilet, he put her on the floor and dialed 911, after which patient had a large bowel movement, not melanotic, not bloody, patient was having shallow and slow breathing's and was unresponsive to sternal rub attempted by . EMS upon arrival found patient on the bathroom floor unconscious, GCS of 3, patient was given Narcan intranasally x 2 and brought to the ED. On arrival to the ED: Patient was hypotensive BP 72/46, pulse 88, patient was very cold, rectal temperature showed 95, O2 sat was not able to be measured, patient was immediately intubated at approximately 1 PM. Pertinent labs: Leukocytosis WBC 14,000, creatinine 1.8, glucose 294, lactic acid 3.8, AST 127, ALT 172, procalcitonin 9.4. Head CT showed no acute hemorrhage, neck CT showed no vertebral fracture, chest abdomen pelvis CT notable for pneumonia, rest within normal limits. Patient will be admitted to ICU for further management of acute hypoxic respiratory failure, we will order head neck CTA and MRI to rule out large vessel occlusion/stroke, EEG and U tox as well. Currently patient's GCS is 3, pupils nonreactive to light. Patient is currently off sedation. PUBLIC WORKS DIRECTOR #Acute encephalopathy - On arrival GCS of 3 - DDx: Stroke vs seizure vs overdose, less likely. - Patient was given Narcan twice in route without improvement, unclear how long patient was down with shallow breaths and a respiratory rate of 5 -We will continue patient off sedation, to evaluate for anoxic brain injury - Follow-up brain CTA and MRI to rule out stroke - Follow-up EEG Cardiovascular #Shock - On arrival patient's blood pressure was 72/46 - Started on Levophed, currently at 0.07 - Likely distributive in the setting of sepsis Respiratory #Acute hypoxic respiratory failure #Bilateral pneumonia - Patient was intubated on arrival due to GCS of 3, and respiratory depression - Unknown O2 sat upon arrival - CT: Bilateral pneumonia - Molly Roman Renal #MARCEL - Likely prerenal in the setting of - Baseline creatinine seems to be 1.2, currently 1.8 - She received 2 L of fluid in the ED will drink 1 extra fluid, continue to monitor ins and outs, place Arango, avoid nephrotoxins GI - Patient initially was constipated, however she did have 1 bowel movement confirmed with , and 2 when she arrived to the hospital, no obvious signs of bleeding - FOBT was positive, however patient had insufficient send hard stools. - We will continue to monitor - Pantoprazole for PUD prophylaxis ID #Bileteral pneumonia - UA unremarkable, CT showed bilateral pneumonia, leukocytosis, predominantly neutrophils, hypothermia, procalcitonin 9.44 - Follow-up blood cultures - Vanco and Zosyn Heme-onc - Patient's baseline hemoglobin appears to be 12, currently 9.7, no obvious signs of bleedings, we will continue to monitor Disposition: Patient admitted to ICU due to acute hypoxic respiratory failure and shock requiring pressors. Diet and fluids: N.p.o. DVT prophylaxis: Heparin GI prophylaxis: Pantoprazole CODE STATUS: Full code Arango: In place Lines: Peripheral Patient's care discussed with attending physician, Dr Idris Rockwell MD PGY3
[2024-07-05 17:25] LABS: Base Excess -4 (-3-3); HCO3 22 mEq/L (20-26); Inspired Oxygen, FIO2 80 %; O2 Saturation 98 % (91-98); PCO2 43 mmHg (32.0-48.0); PO2 273 mmHg (83-108); pH, Arterial 7.31 (7.35-7.45)
[2024-07-05] MEDS: PANTOPRAZOLE INJ 40 MG VIAL IV (17:32)
[2024-07-05 17:34] LABS: Allen Test Not Performed; Puncture Site Right Brachial
[2024-07-05] MEDS: RINGERS LACTATED 1000 ML 1,000 ML 999 ML IV (17:35)
[2024-07-05] MEDS: Vancomycin Inj 1,500 MG in SODIUM CHLORIDE 0.9% 500 ML 500 ML 200 MG IV (19:22)
[2024-07-05 19:23] LABS: Lactic Acid, 3 HR 2.7 mMol/L (0.4-2.0)
[2024-07-05 19:46] LABS: Base Excess -4 (-3-3); HCO3 21 mEq/L (20-26); Inspired Oxygen, FIO2 80 %; O2 Saturation 98 % (91-98); PCO2 41 mmHg (32.0-48.0); PO2 299 mmHg (83-108); pH, Arterial 7.32 (7.35-7.45)
[2024-07-05 19:51] LABS: Allen Test Performed/OK; Puncture Site Left Radial
[2024-07-05 21:23] LABS: Hemoglobin 8.9 g/dL (12.0-16.0)
[2024-07-05] MEDS: PIPER/TAZO INJ 4.5 GM in SODIUM CHLORIDE 0.9% (POP) 100 ML IV (21:57)
[2024-07-05] MEDS: HEPARIN SOD INJ 5000 UNIT/ML VIAL SC (21:57)
--- NOTE | 2024-07-05 22:07 | RESP.EEG ---
EEG COMPLETED AND READY FOR REVIEW.
[2024-07-05] MEDS: RINGERS LACTATED 500 ML 500 ML 999 ML IV (22:47)
[2024-07-05 23:54] LABS: Lactate (Lactic Acid) 2.4 mMol/L (0.4-2.0)
[2024-07-06] VITALS (67 sets, daily range): BP systolic 86–185; BP diastolic 46–93; PULSE 85–115; RESP 8–106; TEMP 36.2–37.7; O2SAT 94–100; BMI 30.6
[2024-07-06 00:22] LABS: Alanine Aminotransferase 357 U/L (10-49); Albumin, Serum 3.3 gm/dL (3.5-5.0); Anion Gap 11 (7-16); Aspartate Amino Transferase 486 U/L (0-34); BUN/Creatinine Ratio 37 Ratio (12-20); Bilirubin,Total 0.3 mg/dL (0.3-1.2); Blood Urea Nitrogen 59 mg/dL (9-23); Calcium 7.9 mg/dL (8.3-10.6); Calcium (Corrected) 8.5 mg/dL (8.5-10.1); Carbon Dioxide 20.5 mMol/L (20.0-31.0); Chloride 110 mMol/L (98-107); Creatinine (Component) 1.6 mg/dL (0.6-1.3); Estimated Creatinine Clearance 35.5 mL/min (>60); Glucose 145 mg/dL (74-106); Osmolality,Calculated 300 (275-295); Potassium 3.9 mMol/L (3.4-5.1); Sodium 141 mMol/L (136-145); Total Protein 5.4 gm/dL (5.7-8.2); eGFR 38 See Note
[2024-07-06 00:23] LABS: Albumin/Globulin Ratio 1.6 (1.2-2.2); Alkaline Phosphatase 72 U/L (46-116); Globulin 2.1 gm/dL (2.3-3.5)
[2024-07-06 02:50] LABS: Reflex Lactate? Y
[2024-07-06 03:17] LABS: Lactate (Lactic Acid) 2.2 mMol/L (0.4-2.0)
[2024-07-06] MEDS: fentaNYL 2,500 MCG/250 ML BAG 2,500 MCG/250 ML BAG IV (03:44)
[2024-07-06] MEDS: PROPOFOL 1,000 MG IVPB 1,000 MG/100 ML VIAL 2.154 MG IV (03:55)
[2024-07-06 05:10] LABS: Base Excess -5 (-3-3); HCO3 21 mEq/L (20-26); Inspired Oxygen, FIO2 40 %; O2 Saturation 96 % (91-98); PCO2 41 mmHg (32.0-48.0); PO2 106 mmHg (83-108); pH, Arterial 7.32 (7.35-7.45)
[2024-07-06] MEDS: PIPER/TAZO INJ 4.5 GM in SODIUM CHLORIDE 0.9% (POP) 100 ML IV (05:10)
[2024-07-06] MEDS: HEPARIN SOD INJ 5000 UNIT/ML VIAL SC ×3 (05:11→21:16)
[2024-07-06 05:18] LABS: Allen Test Performed/OK; Puncture Site Left Radial
--- NOTE | 2024-07-06 06:00 | XR_ITS ---
Examination: AP chest single view Technique one AP portable chest single view Exam date 9: July 06, 2024 0606 hrs. Comparison June 25, 2024 Indications: Hypoxic respiratory failure postintubation Findings: Endotracheal tube tip 3.9 cm above shayna. Orogastric tube tip in the stomach satisfactory position Mild prominence of ventricle Moderate vascular congestion Opacity in the right upper lobe and left base consistent with pneumonia Impression: Endotracheal tube tip 3.9 cm above shayna Pneumonia in the right upper lobe and left base, consider aspiration pneumonia Moderate vascular congestion
[2024-07-06 06:15] LABS: Reflex Lactate? Y
[2024-07-06 07:45] LABS: Lactate (Lactic Acid) 1.3 mMol/L (0.4-2.0)
[2024-07-06 08:04] LABS: Ammonia 11 uMol/L (11-32)
[2024-07-06 08:05] LABS: Basophils % (Auto) 0 % (0-2.5); Eosinophils # (Auto) 0.1 Thou/mm3 (0.0-0.5); Eosinophils % (Auto) 1 % (0-10); Hematocrit 28.2 % (36.0-46.0); Immature Granulocytes % (Auto) 0 % (0-0); Immature Granulocytes Auto 0.03 Thou/mm3 (0.00-0.00); Lymphocytes # (Auto) 0.2 Thou/mm3 (1.0-4.8); Lymphocytes % (Auto) 2 % (10-50); Mean Corpuscular HGB Conc 29.4 g/dl (31.0-37.0); Mean Corpuscular Hemoglobin 21.5 pg (25.0-35.0); Mean Corpuscular Volume 73 fL (80-100); Monocytes # (Auto) 0.4 Thou/mm3 (0.0-0.8); Monocytes % (Auto) 4 % (0-12); Neutrophils % (Auto) 93 % (37-80); Nucleated Red Blood Cell # 0.03 Thou/mm3 (0.00-0.00); Nucleated Red Blood Cell % 0 /100 WBC (0); Platelet Count 290 Thou/mm3 (140-440); RDW Standard Deviation 57.3 fL (36.4-46.3); Red Blood Count 3.86 Miln/mm3 (4.00-5.20); White Blood Count 9.7 Thou/mm3 (3.6-11.0)
[2024-07-06 08:06] LABS: Alanine Aminotransferase 335 U/L (10-49); Albumin, Serum 3.3 gm/dL (3.5-5.0); Albumin/Globulin Ratio 1.5 (1.2-2.2); Alkaline Phosphatase 71 U/L (46-116); Anion Gap 12 (7-16); Aspartate Amino Transferase 295 U/L (0-34); BUN/Creatinine Ratio 38 Ratio (12-20); Bilirubin,Total 0.4 mg/dL (0.3-1.2); Blood Urea Nitrogen 61 mg/dL (9-23); Calcium 7.9 mg/dL (8.3-10.6); Calcium (Corrected) 8.5 mg/dL (8.5-10.1); Carbon Dioxide 20.5 mMol/L (20.0-31.0); Chloride 115 mMol/L (98-107); Creatinine (Component) 1.6 mg/dL (0.6-1.3); Estimated Creatinine Clearance 35.4 mL/min (>60); Globulin 2.2 gm/dL (2.3-3.5); Glucose 172 mg/dL (74-106); Hemoglobin 8.3 g/dL (12.0-16.0); Magnesium 2.9 mg/dL (1.6-2.6); Osmolality,Calculated 313 (275-295); Phosphorous 6.3 mg/dL (2.4-5.1); Potassium 3.6 mMol/L (3.4-5.1); Sodium 147 mMol/L (136-145); Thyroid Stimulating Hormone 0.35 uIU/mL (0.55-4.78); Total Protein 5.5 gm/dL (5.7-8.2); eGFR 38 See Note
[2024-07-06] MEDS: PANTOPRAZOLE INJ 40 MG VIAL IV (08:52)
--- NOTE | 2024-07-06 10:45 | CHAP ---
Patient was visited by the Spiritual Care Volunteer who prayed for them. (Volunteer was in the hospital from 09:13-10:45).
--- NOTE | 2024-07-06 11:16 | PD.INTPROG ---
Documentation for date of: 07/06/24 Subjective Subjective Interval history: This is a 54yo F admitted to the ICU yesterday for AMS and acute resp failure. She was found down at her house with a GCS of 3 and intubated on arrival to the ER. Initially she did not require sedation however overnight she became more responsive and required fent/prop. There were no acute overnight events. She is afebrile with no sz activity noted. CTA head /neck yesterday did not show any LVO or dissection. No clear reason for pts LOC. Does have a h/o narcotic use however was given narcan in the field with no response. Exam Vital Signs Temp Pulse Resp BP Pulse Ox O2 Del Method O2 Flow Rate 98.4 F 97 15 146/71 H 100 Mechanical Ventilation 60 07/06/24 04:00 07/06/24 06:30 07/06/24 08:30 07/06/24 06:30 07/06/24 06:30 07/05/24 18:00 07/05/24 14:30 FiO2 25 07/06/24 08:30 Narrative Exam Gen- NAD, awake and agitated, nl body habitus HEENT- NC/AT mucosa hydrated, sclera anicteric, ETT/OGT in place Chest- LCTAB, HRRR, no increase in WOB Abd- s/nt/bs+ Ext- no edema, L BKA, mult ulcerations in various stages of healing on RLE, no mottling, no clubbing, moves all 4 Vent PSV Drips levo fent prop Objective - [employer] Former Labs 07/06/24 07:30 07/06/24 07:30 Labs: Laboratory Results - last 24 hr 07/05/24 07/05/24 07/05/24 13:01 13:10 13:15 WBC 14.8 H RBC 4.46 Hgb 9.7 L Hct 32.8 L MCV 74 L MCH 21.7 L MCHC 29.6 L RDW Std Deviation 56.4 H Plt Count 357 Neut % (Auto) 83 H Lymph % (Auto) 6 L [place] % (Auto) 10 Eos % (Auto) 0 Baso % (Auto) 0 Neut # (Auto) 12.3 H Lymph # (Auto) 0.9 L [place] # (Auto) 1.5 H Eos # (Auto) 0.0 Baso # (Auto) 0.0 Immature Gran # (Auto) 0.07 H Absolute Nucleated RBC 0.11 H Immature Gran % 1 H Nucleated RBC % 1 H PT 10.4 INR 0.9 APTT 24.6 Puncture Site Right Brachial ABG pH 7.21 L ABG pCO2 52 H ABG pO2 379 H ABG HCO3 20 ABG O2 Saturation 98 ABG Base Excess -7 L FiO2 100 Sodium 145 Potassium 3.7 Chloride 111 H Carbon Dioxide 18.9 L Anion Gap 15 BUN 66 H Creatinine 1.8 H D Estim Creat Clear Calc 31.6 L eGFR 33 L BUN/Creatinine Ratio 37 H Glucose 294 H D Calculated Osmolality 318 H Lactic Acid 3.8 H Calcium 8.3 Corrected Calcium 8.6 Phosphorus Magnesium Total Bilirubin 0.2 L AST 127 H ALT 172 H Alkaline Phosphatase 80 Ammonia Troponin I < 0.020 Total Protein 5.5 L Albumin 3.6 Globulin 1.9 L Albumin/Globulin Ratio 1.9 Lipase 86 H Procalcitonin 9.44 H TSH Ur Collection Type Urine Color Urine Clarity Urine pH Ur Specific [place] Urine Protein Urine Glucose (UA) Urine Ketones Urine Blood Urine Nitrite Urine Bilirubin Urine Urobilinogen (Auto) Ur Leukocyte Esterase Urine RBC Urine WBC Ur Squamous Epith Cells Urine Bacteria Urine Yeast (Budding) Stool Occult Blood Blood Type Antibody Screen Blood Bank Wristband ID 07/05/24 07/05/24 07/05/24 13:30 13:52 17:18 WBC RBC Hgb Hct MCV MCH MCHC RDW Std Deviation Plt Count Neut % (Auto) Lymph % (Auto) [place] % (Auto) Eos % (Auto) Baso % (Auto) Neut # (Auto) Lymph # (Auto) [place] # (Auto) Eos # (Auto) Baso # (Auto) Immature Gran # (Auto) Absolute Nucleated RBC Immature Gran % Nucleated RBC % PT INR APTT Puncture Site Right Brachial ABG pH 7.31 L D ABG pCO2 43 ABG pO2 273 H D ABG HCO3 22 ABG O2 Saturation 98 ABG Base Excess -4 L FiO2 80 Sodium Potassium Chloride Carbon Dioxide Anion Gap BUN Creatinine Estim Creat Clear Calc eGFR BUN/Creatinine Ratio Glucose Calculated Osmolality Lactic Acid Calcium Corrected Calcium Phosphorus Magnesium Total Bilirubin AST ALT Alkaline Phosphatase Ammonia Troponin I Total Protein Albumin Globulin Albumin/Globulin Ratio Lipase Procalcitonin TSH Ur Collection Type Catheter Urine Color Lt-Yellow Urine Clarity Hazy Urine pH 6.0 Ur Specific [place] 1.024 Urine Protein 1+ A Urine Glucose (UA) 4+ A Urine Ketones Negative Urine Blood Negative Urine Nitrite Negative Urine Bilirubin Negative Urine Urobilinogen (Auto) Negative Ur Leukocyte Esterase Positive Urine RBC 0 Urine WBC 9 H Ur Squamous Epith Cells 1 Urine Bacteria None Urine Yeast (Budding) Present A Stool Occult Blood Positive A Blood Type Antibody Screen Blood Bank Wristband ID 07/05/24 07/05/24 07/05/24 19:07 19:35 20:56 WBC RBC Hgb 8.9 L Hct 30.0 L MCV MCH MCHC RDW Std Deviation Plt Count Neut % (Auto) Lymph % (Auto) [place] % (Auto) Eos % (Auto) Baso % (Auto) Neut # (Auto) Lymph # (Auto) [place] # (Auto) Eos # (Auto) Baso # (Auto) Immature Gran # (Auto) Absolute Nucleated RBC Immature Gran % Nucleated RBC % PT INR APTT Puncture Site Left Radial ABG pH 7.32 L ABG pCO2 41 ABG pO2 299 H D ABG HCO3 21 ABG O2 Saturation 98 ABG Base Excess -4 L FiO2 80 Sodium Potassium Chloride Carbon Dioxide Anion Gap BUN Creatinine Estim Creat Clear Calc eGFR BUN/Creatinine Ratio Glucose Calculated Osmolality Lactic Acid 2.7 H Calcium Corrected Calcium Phosphorus Magnesium Total Bilirubin AST ALT Alkaline Phosphatase Ammonia Troponin I Total Protein Albumin Globulin Albumin/Globulin Ratio Lipase Procalcitonin TSH Ur Collection Type Urine Color Urine Clarity Urine pH Ur Specific [place] Urine Protein Urine Glucose (UA) Urine Ketones Urine Blood Urine Nitrite Urine Bilirubin Urine Urobilinogen (Auto) Ur Leukocyte Esterase Urine RBC Urine WBC Ur Squamous Epith Cells Urine Bacteria Urine Yeast (Budding) Stool Occult Blood Blood Type O Positive Antibody Screen NEGATIVE Blood Bank Wristband ID Yes 07/05/24 07/06/24 07/06/24 23:16 02:52 04:52 WBC RBC Hgb Hct MCV MCH MCHC RDW Std Deviation Plt Count Neut % (Auto) Lymph % (Auto) [place] % (Auto) Eos % (Auto) Baso % (Auto) Neut # (Auto) Lymph # (Auto) [place] # (Auto) Eos # (Auto) Baso # (Auto) Immature Gran # (Auto) Absolute Nucleated RBC Immature Gran % Nucleated RBC % PT INR APTT Puncture Site Left Radial ABG pH 7.32 L ABG pCO2 41 ABG pO2 106 D ABG HCO3 21 ABG O2 Saturation 96 ABG Base Excess -5 L FiO2 40 Sodium 141 Potassium 3.9 Chloride 110 H Carbon Dioxide 20.5 Anion Gap 11 BUN 59 H Creatinine 1.6 H Estim Creat Clear Calc 35.5 L eGFR 38 L BUN/Creatinine Ratio 37 H Glucose 145 H D Calculated Osmolality 300 H Lactic Acid 2.4 H 2.2 H Calcium 7.9 L Corrected Calcium 8.5 Phosphorus Magnesium Total Bilirubin 0.3 AST 486 H ALT 357 H Alkaline Phosphatase 72 Ammonia Troponin I Total Protein 5.4 L Albumin 3.3 L Globulin 2.1 L Albumin/Globulin Ratio 1.6 Lipase Procalcitonin TSH Ur Collection Type Urine Color Urine Clarity Urine pH Ur Specific [place] Urine Protein Urine Glucose (UA) Urine Ketones Urine Blood Urine Nitrite Urine Bilirubin Urine Urobilinogen (Auto) Ur Leukocyte Esterase Urine RBC Urine WBC Ur Squamous Epith Cells Urine Bacteria Urine Yeast (Budding) Stool Occult Blood Blood Type Antibody Screen Blood Bank Wristband ID 07/06/24 07:30 WBC 9.7 D RBC 3.86 L Hgb 8.3 L Hct 28.2 L MCV 73 L MCH 21.5 L MCHC 29.4 L RDW Std Deviation 57.3 H Plt Count 290 D Neut % (Auto) 93 H Lymph % (Auto) 2 L [place] % (Auto) 4 Eos % (Auto) 1 Baso % (Auto) 0 Neut # (Auto) 9.0 H Lymph # (Auto) 0.2 L [place] # (Auto) 0.4 Eos # (Auto) 0.1 Baso # (Auto) 0.0 Immature Gran # (Auto) 0.03 H Absolute Nucleated RBC 0.03 H Immature Gran % 0 Nucleated RBC % 0 PT INR APTT Puncture Site ABG pH ABG pCO2 ABG pO2 ABG HCO3 ABG O2 Saturation ABG Base Excess FiO2 Sodium 147 H Potassium 3.6 Chloride 115 H Carbon Dioxide 20.5 Anion Gap 12 BUN 61 H Creatinine 1.6 H Estim Creat Clear Calc 35.4 L eGFR 38 L BUN/Creatinine Ratio 38 H Glucose 172 H Calculated Osmolality 313 H Lactic Acid 1.3 Calcium 7.9 L Corrected Calcium 8.5 Phosphorus 6.3 H Magnesium 2.9 H Total Bilirubin 0.4 AST 295 H ALT 335 H Alkaline Phosphatase 71 Ammonia 11 Troponin I Total Protein 5.5 L Albumin 3.3 L Globulin 2.2 L Albumin/Globulin Ratio 1.5 Lipase Procalcitonin TSH 0.35 L Ur Collection Type Urine Color Urine Clarity Urine pH Ur Specific [place] Urine Protein Urine Glucose (UA) Urine Ketones Urine Blood Urine Nitrite Urine Bilirubin Urine Urobilinogen (Auto) Ur Leukocyte Esterase Urine RBC Urine WBC Ur Squamous Epith Cells Urine Bacteria Urine Yeast (Budding) Stool Occult Blood Blood Type Antibody Screen Blood Bank Wristband ID Assessment & Plan Additional Assessment Additional Assessment: In brief this is a 54yo F admitted to the ICU with LOC and acute resp failure a/p [employer] LOC- unclear etiology for pts LOC with respiratory depression yesterday. Today she is awake and thrashing on the vent - EEG pending - HCT and CTA head/neck neg for acute changes - no focal deficits today Spinal Stenosis- at level of C5- C6 and reported as severe - will need outpt follow up Chronic pain- on mult meds for pain - would decrease narcotics at this time CV HFpEF- last echo in Mar 2023 - severe LVH - fu with repeat echo - received 3.5lt IVF for volume resuscitation during her stay thus far - will need eventual diuretic Resp Acute Resp Failure- doing well on PSV - will obtain weening parameters and extubate Aspiration PNA- on abx x5 days and cx pending Renal Hyperchloremic nongap acidosis- likely due to NS received for volume resuscitation MARCEL- some improvement from arrival - likely prerenal - monitor UOP - avoid nephrotoxins GI Transaminitis- down trending today - in the setting of hypotension and pressor use - ischemic v hypoxic injury - hepatitis panel pending Endo ? thyroid pathology- no h/o thyroid issues however TSH checked on arrival and found to be low - will send TSH and Free T4 for further eval DM- SSI, FS ACHS Heme Anemia- slight decrease in h/h from arrival - likely dilutional in nature - no active bleed - check iron panel DVT proph- heparin ID stable case d/w ICU team d/w family at bedside labs, imaging records reviewed ~44ccmin required for eval, exam, review, intervention, discussion and formulation of POC for this critically ill pt with resp failure at high risk for further and ongoing decompensation Provider Notation Provider Notation: Although this document has been carefully reviewed, there may still be some phonetic and other typographical errors. These errors are purely grammatical due to imperfections in the software program and should not be construed in any way to compromise the substance of the patient's medical care during this visit. Thank you for the opportunity and privilege in assisting you with this patient's care and management.
[2024-07-06 11:57] LABS: Free T4 (Free Thyroxine) 0.72 ng/dL (0.89-1.76); Thyroid Stimulating Hormone 0.36 uIU/mL (0.55-4.78)
[2024-07-06 12:33] LABS: Iron < 2 mcg/dL (50-170); Percent Iron Saturation 0 % (20-55); Total Iron Binding Capacity 274 mcg/dL (250-425); Unsaturated Iron Binding 272 (225-295)
[2024-07-06] MEDS: cefTRIAXone/D5w 1gm IV premix 1 GM/50 ML BAG IV (13:40)
--- NOTE | 2024-07-06 14:03 | PD.RESPRO ---
Documentation for date of: 07/06/24 Subjective Subjective Interval history: 54-year-old female with past medical history of insulin-dependent diabetes type 2 with complications, neuropathy, sp left BKA with severe pain for which patient takes Percocet, wheelchair-bound, hypertension and hyperlipidemia who was brought in by ambulance due to acute encephalopathy. Per patient's patient's baseline GCS is 15, she was in her usual state of health until this morning around 9 AM when she started complaining of abdominal pain and an urge to defecate. Patient's helped her to the restroom where she endorsed constipation and difficulty passing stool, has been returned about 1 hour later and patient was still on the toilet, tired but able to communicate properly, it is unclear how long after that patient heard noise coming from the bathroom when he went to check-in patient was still sitting on the toilet, however her head was against the sink and it seemed like she had hit her head, patient was still coherent but somnolent, patient's then proceeded to put a pillow between her head and the sink and left again. After approximately half hour to 45 minutes went to check in again and found patient unresponsive, still sitting on the toilet, he put her on the floor and dialed 911, checked blood glucose which was aprox 650 and he gave insulin patient then had a large bowel movement, not melanotic, not bloody, patient was having shallow and slow breathing's and was unresponsive to sternal rub attempted by . EMS upon arrival found patient on the bathroom floor unconscious, GCS of 3, respiratory rate around 5, 6 patient was given Narcan intranasally x 2 and brought to the ED. On arrival to the ED: Patient was hypotensive BP 72/46, pulse 88, patient was very cold, rectal temperature showed 95, O2 sat was not able to be measured, patient was immediately intubated at approximately 1 PM. Pertinent labs: Leukocytosis WBC 14,000, creatinine 1.8, glucose 294, osm 318, lactic acid 3.8, AST 127, ALT 172, procalcitonin 9.4. Head CT showed no acute hemorrhage, neck CT showed no vertebral fracture, chest abdomen pelvis CT notable for pneumonia, rest within normal limits. Patient will be admitted to ICU for further management of acute hypoxic respiratory failure, we will order head neck CTA and MRI to rule out large vessel occlusion/stroke, EEG and U tox as well. Currently patient's GCS is 3, pupils nonreactive to light. Patient is currently off sedation. 07/06/2024: Patient woke up around 3 am, this morning alert and awake, extubated, following comands however she is not oriented and keeps moaning constantly. All vitals within normal limits. MRI still pending. Patient safe and stable for downgrade to floors. Exam Vital Signs Temp Pulse Resp BP Pulse Ox O2 Del Method O2 Flow Rate 99.5 F 105 H 8 L 147/80 H 99 Nasal Cannula 2 07/06/24 12:00 07/06/24 12:00 07/06/24 12:00 07/06/24 12:07/06/24 12:07/06/24 12:07/06/24 12:00 FiO2 07/06/24 08:30 Narrative Exam GENERAL: Awake, alert nor orinted, anxious, moaning HEENT: Normocephalic, atraumatic and nontender.? Pupils are equal and reactive to light and accommodation.? Oral mucosa moist. NECK: Supple without adenopathy. Traquea midline. Nontender, carotid pulse 2+ bilaterally without bruits, no JVD.? CHEST: Heart rate and rythm normal, no murmurs, gallops auscultated. S1 & 2 normal insensity. Nontender on palpation, no deformity and no crepitus. LUNGS: Lung sounds are clear.? No wheezing, rales or ronchi.? No intercostal subcostal retraction. Room air ABDOMEN: Soft,symmetric , nontender, no guarding or rebound tenderness. No abnormal masses palpated.?Bowel sounds are normoactive in all 4 quadrants. EXTREMITIES: Nontender.? No pitting edema.? No cyanosis.? Patient is able to move all 4 extremities. Left BKA SKIN: No rashes noted. NEURO:? There is no focalization.? Objective Labs 07/06/24 07:30 07/06/24 07:30 Labs: Laboratory Results - last 24 hr 07/05/24 07/05/24 07/05/24 13:30 13:52 17:18 WBC RBC Hgb Hct MCV MCH MCHC RDW Std Deviation Plt Count Neut % (Auto) Lymph % (Auto) [place] % (Auto) Eos % (Auto) Baso % (Auto) Neut # (Auto) Lymph # (Auto) [place] # (Auto) Eos # (Auto) Baso # (Auto) Immature Gran # (Auto) Absolute Nucleated RBC Immature Gran % Nucleated RBC % Puncture Site Right Brachial ABG pH 7.31 L D ABG pCO2 43 ABG pO2 273 H D ABG HCO3 22 ABG O2 Saturation 98 ABG Base Excess -4 L FiO2 80 Sodium Potassium Chloride Carbon Dioxide Anion Gap BUN Creatinine Estim Creat Clear Calc eGFR BUN/Creatinine Ratio Glucose Calculated Osmolality Lactic Acid Calcium Corrected Calcium Phosphorus Magnesium Iron TIBC Iron Saturation Unsat Iron Binding Total Bilirubin AST ALT Alkaline Phosphatase Ammonia Total Protein Albumin Globulin Albumin/Globulin Ratio TSH Free T4 Ur Collection Type Catheter Urine Color Lt-Yellow Urine Clarity Hazy Urine pH 6.0 Ur Specific [place] 1.024 Urine Protein 1+ A Urine Glucose (UA) 4+ A Urine Ketones Negative Urine Blood Negative Urine Nitrite Negative Urine Bilirubin Negative Urine Urobilinogen (Auto) Negative Ur Leukocyte Esterase Positive Urine RBC 0 Urine WBC 9 H Ur Squamous Epith Cells 1 Urine Bacteria None Urine Yeast (Budding) Present A Stool Occult Blood Positive A Blood Type Antibody Screen Blood Bank Wristband ID 07/05/24 07/05/24 07/05/24 19:07 19:35 20:56 WBC RBC Hgb 8.9 L Hct 30.0 L MCV MCH MCHC RDW Std Deviation Plt Count Neut % (Auto) Lymph % (Auto) [place] % (Auto) Eos % (Auto) Baso % (Auto) Neut # (Auto) Lymph # (Auto) [place] # (Auto) Eos # (Auto) Baso # (Auto) Immature Gran # (Auto) Absolute Nucleated RBC Immature Gran % Nucleated RBC % Puncture Site Left Radial ABG pH 7.32 L ABG pCO2 41 ABG pO2 299 H D ABG HCO3 21 ABG O2 Saturation 98 ABG Base Excess -4 L FiO2 80 Sodium Potassium Chloride Carbon Dioxide Anion Gap BUN Creatinine Estim Creat Clear Calc eGFR BUN/Creatinine Ratio Glucose Calculated Osmolality Lactic Acid 2.7 H Calcium Corrected Calcium Phosphorus Magnesium Iron TIBC Iron Saturation Unsat Iron Binding Total Bilirubin AST ALT Alkaline Phosphatase Ammonia Total Protein Albumin Globulin Albumin/Globulin Ratio TSH Free T4 Ur Collection Type Urine Color Urine Clarity Urine pH Ur Specific [place] Urine Protein Urine Glucose (UA) Urine Ketones Urine Blood Urine Nitrite Urine Bilirubin Urine Urobilinogen (Auto) Ur Leukocyte Esterase Urine RBC Urine WBC Ur Squamous Epith Cells Urine Bacteria Urine Yeast (Budding) Stool Occult Blood Blood Type O Positive Antibody Screen NEGATIVE Blood Bank Wristband ID Yes 07/05/24 07/06/24 07/06/24 23:16 02:52 04:52 WBC RBC Hgb Hct MCV MCH MCHC RDW Std Deviation Plt Count Neut % (Auto) Lymph % (Auto) [place] % (Auto) Eos % (Auto) Baso % (Auto) Neut # (Auto) Lymph # (Auto) [place] # (Auto) Eos # (Auto) Baso # (Auto) Immature Gran # (Auto) Absolute Nucleated RBC Immature Gran % Nucleated RBC % Puncture Site Left Radial ABG pH 7.32 L ABG pCO2 41 ABG pO2 106 D ABG HCO3 21 ABG O2 Saturation 96 ABG Base Excess -5 L FiO2 40 Sodium 141 Potassium 3.9 Chloride 110 H Carbon Dioxide 20.5 Anion Gap 11 BUN 59 H Creatinine 1.6 H Estim Creat Clear Calc 35.5 L eGFR 38 L BUN/Creatinine Ratio 37 H Glucose 145 H D Calculated Osmolality 300 H Lactic Acid 2.4 H 2.2 H Calcium 7.9 L Corrected Calcium 8.5 Phosphorus Magnesium Iron TIBC Iron Saturation Unsat Iron Binding Total Bilirubin 0.3 AST 486 H ALT 357 H Alkaline Phosphatase 72 Ammonia Total Protein 5.4 L Albumin 3.3 L Globulin 2.1 L Albumin/Globulin Ratio 1.6 TSH Free T4 Ur Collection Type Urine Color Urine Clarity Urine pH Ur Specific [place] Urine Protein Urine Glucose (UA) Urine Ketones Urine Blood Urine Nitrite Urine Bilirubin Urine Urobilinogen (Auto) Ur Leukocyte Esterase Urine RBC Urine WBC Ur Squamous Epith Cells Urine Bacteria Urine Yeast (Budding) Stool Occult Blood Blood Type Antibody Screen Blood Bank Wristband ID 07/06/24 07/06/24 07:30 07:30 WBC 9.7 D RBC 3.86 L Hgb 8.3 L Hct 28.2 L MCV 73 L MCH 21.5 L MCHC 29.4 L RDW Std Deviation 57.3 H Plt Count 290 D Neut % (Auto) 93 H Lymph % (Auto) 2 L [place] % (Auto) 4 Eos % (Auto) 1 Baso % (Auto) 0 Neut # (Auto) 9.0 H Lymph # (Auto) 0.2 L [place] # (Auto) 0.4 Eos # (Auto) 0.1 Baso # (Auto) 0.0 Immature Gran # (Auto) 0.03 H Absolute Nucleated RBC 0.03 H Immature Gran % 0 Nucleated RBC % 0 Puncture Site ABG pH ABG pCO2 ABG pO2 ABG HCO3 ABG O2 Saturation ABG Base Excess FiO2 Sodium 147 H Potassium 3.6 Chloride 115 H Carbon Dioxide 20.5 Anion Gap 12 BUN 61 H Creatinine 1.6 H Estim Creat Clear Calc 35.4 L eGFR 38 L BUN/Creatinine Ratio 38 H Glucose 172 H Calculated Osmolality 313 H Lactic Acid 1.3 Calcium 7.9 L Corrected Calcium 8.5 Phosphorus 6.3 H Magnesium 2.9 H Iron < 2 L TIBC 274 Iron Saturation 0 L Unsat Iron Binding 272 Total Bilirubin 0.4 AST 295 H ALT 335 H Alkaline Phosphatase 71 Ammonia 11 Total Protein 5.5 L Albumin 3.3 L Globulin 2.2 L Albumin/Globulin Ratio 1.5 TSH 0.35 L 0.36 L Free T4 0.72 L Ur Collection Type Urine Color Urine Clarity Urine pH Ur Specific [place] Urine Protein Urine Glucose (UA) Urine Ketones Urine Blood Urine Nitrite Urine Bilirubin Urine Urobilinogen (Auto) Ur Leukocyte Esterase Urine RBC Urine WBC Ur Squamous Epith Cells Urine Bacteria Urine Yeast (Budding) Stool Occult Blood Blood Type Antibody Screen Blood Bank Wristband ID ABG Interpretation ABG results: 07/05/24 07/05/24 07/05/24 13:15 17:18 19:35 ABG pH 7.21 L 7.31 L D 7.32 L ABG pCO2 52 H 43 41 ABG pO2 379 H 273 H D 299 H D ABG HCO3 20 22 21 ABG O2 Saturation 98 98 98 ABG Base Excess -7 L -4 L -4 L 07/06/24 04:52 ABG pH 7.32 L ABG pCO2 41 ABG pO2 106 D ABG HCO3 21 ABG O2 Saturation 96 ABG Base Excess -5 L Quality Measures Quality Measures sepsis Current suspected stage: ruled out Possible source: pulmonary Blood cultures ordered: yes Antibiotic ordered: Yes Assessment & Plan Assessment Current Active Medications: Generic Name Dose Route Start Last Admin Trade Name Freq PRN Reason Stop Dose Admin Acetaminophen 650 mg 07/05/24 16:39 Acetaminophen Supp 650 Mg Supp MS 08/04/24 16:38 Q6HR PRN Fever > 100.4 Baclofen 10 mg 07/06/24 13:09 Baclofen 10 Mg Tablet PO 08/05/24 13:08 TID PRN Muscle Spasticity Dextrose 25 ml 07/06/24 13:39 Dextrose 50%-Water Inj 50 Ml Syringe IV 08/05/24 13:38 Q15MIN PRN BG 50-70 responsive npo pt Dextrose 50 ml 07/06/24 13:39 Dextrose 50%-Water Inj 50 Ml Syringe IV 08/05/24 13:38 Q15MIN PRN BG <50 OR BG <70 & pt unresponsive Gabapentin 100 mg 07/06/24 13:15 Gabapentin 100 Mg Capsule PO 08/05/24 13:14 BID MOOSE Glucagon 1 mg 07/06/24 13:39 Glucagon Inj 1 Mg Vial IM Q15MIN PRN BG <70, and no IV access Heparin Sodium (Porcine) 5,000 unit 07/05/24 22:00 07/06/24 05:11 Heparin Sod Inj 5000 Unit/Ml Vial SC 07/19/24 21:59 5,000 unit Q8HR MOOSE Administration Ceftriaxone Sodium/Dextrose 1 gm in 50 mls @ 100 mls/hr 07/06/24 09:45 Rocephin/D5w 1gm Iv Premix IV 07/10/24 09:44 QDAY [facility] Insulin Human Lispro 0 unit 07/06/24 17:00 Insulin Lispro (Admelog) 1 Unit/0.01 Ml Unit SC 08/05/24 16:59 AC [facility] Protocol Lactulose 20 gm 07/06/24 14:00 Lactulose Syrup 20 Gm/30 Ml Udc PO 08/05/24 13:59 TID [facility] Protocol Plan [employer] #Acute metabolic encephalopathy, improvivng - On arrival GCS of 3 - DDx: Stroke vs seizure vs overdose vs HHS - Patient takes percocet however las ingestion was 12 hrs prior to symptoms, she was given Narcan twice in route without improvement - Patients check glucose at home and was in the 600s, gave insulin, osmolarity was 318 on admission - Head neck CTA no large vessel occulsion, head CT no acute hemorrhage - Follow up MRI to rule out stroke, less likely no focal decifits - Follow-up EEG Cardiovascular - On arrival patient's blood pressure was 72/46 - Started on Levophed, currently at 0.07 Respiratory #Acute hypoxic respiratory failure #Aspiration pneumonia - Patient was intubated on arrival due to GCS of 3, and respiratory depression - Unknown O2 sat upon arrival - CT: Aspiration pneumonia - Rocephin Renal #MARCEL - Likely prerenal in the setting of dehydration - Baseline creatinine seems to be 1.2, currently 1.8 - She received 2 L of fluid in the ED, then she got 1 L after admission and 1/2 liter overnight GI - Patient initially was constipated, however she did have 1 bowel movement confirmed with , and 2 when she arrived to the hospital, no obvious signs of bleeding - FOBT was positive, however patient had insufficient send hard stools. - We will continue to monitor - Pantoprazole for PUD prophylaxis ID #Aspiration pneumonia - UA unremarkable, CT showed aspiration pneumonia, leukocytosis, predominantly neutrophils, hypothermia, procalcitonin 9.44 - Follow-up blood cultures - Vanco and Zosyn, narrowed down to rocephin - Leukocytosis resolved Heme-onc - Patient's baseline hemoglobin appears to be 12, currently 9.7, no obvious signs of bleedings, we will continue to monitor Disposition: Patient safe and stable for downgrade to telemetry Diet and fluids: N.p.o. DVT prophylaxis: Heparin GI prophylaxis: Pantoprazole CODE STATUS: Full code [place]: In place Lines: Peripheral Patient's care discussed with attending physician, Dr Idris Rockwell MD [id number]
--- NOTE | 2024-07-06 15:32 | ESPR_ITS ---
Documentation for date of: 07/06/24 Subjective Subjective Interval history: Signout for the patient received from Dr. Rockwell, Basically Ms. Vergara is a 54-year-old female with past medical history of poorly controlled type 2 diabetes mellitus with severe complications, status post left BKA, significant neuropathy and severe pain, hypertension and hyperlipidemia who presented to [facility] emergency department on 07/05/2024 for acute encephalopathy. Patient was noted to have GCS of 3 and was intubated and admitted to intensive care unit for further management. Patient did have an episode of loss of consciousness, because unknown, CT scan of head and CTA were negative, no known cause for loss of consciousness. Does have heart failure with preserved ejection fraction and severe left ventricular hypertrophy, patient was extubated on 07/06/2024, patient diabetes managed on sliding scale insulin. Patient was further downgraded to hospitalist team to continue care. Exam Vital Signs Temp Pulse Resp BP Pulse Ox O2 Del Method O2 Flow Rate 99.5 F 107 H 18 147/80 H 98 Nasal Cannula 2 07/06/24 12:00 07/06/24 14:23 07/06/24 14:23 07/06/24 12:00 07/06/24 14:23 07/06/24 12:00 07/06/24 14:23 FiO2 25 07/06/24 08:30 Narrative Exam GENERAL: Awake, alert nor orinted, anxious, moaning HEENT: Normocephalic, atraumatic and nontender.? Pupils are equal and reactive to light and accommodation.? Oral mucosa moist. NECK: Supple without adenopathy. Traquea midline. Nontender, carotid pulse 2+ bilaterally without bruits, no JVD.? CHEST: Heart rate and rythm normal, no murmurs, gallops auscultated. S1 & 2 normal insensity. Nontender on palpation, no deformity and no crepitus. LUNGS: Lung sounds are clear.? No wheezing, rales or ronchi.? No intercostal subcostal retraction. Room air ABDOMEN: Soft,symmetric , nontender, no guarding or rebound tenderness. No abnormal masses palpated.?Bowel sounds are normoactive in all 4 quadrants. EXTREMITIES: Nontender.? No pitting edema.? No cyanosis.? Patient is able to move all 4 extremities. Left BKA SKIN: No rashes noted. NEURO:?Alert and oriented x 1, family at bedside recognizes family, unable to hold a conversation, weaning off of anesthesia, there is no focalization.? Objective Labs 07/06/24 07:30 07/06/24 07:30 Labs: Laboratory Results - last 24 hr 07/05/24 07/05/24 07/05/24 13:52 17:18 19:07 WBC RBC Hgb 8.9 L Hct 30.0 L MCV MCH MCHC RDW Std Deviation Plt Count Neut % (Auto) Lymph % (Auto) [place] % (Auto) Eos % (Auto) Baso % (Auto) Neut # (Auto) Lymph # (Auto) [place] # (Auto) Eos # (Auto) Baso # (Auto) Immature Gran # (Auto) Absolute Nucleated RBC Immature Gran % Nucleated RBC % Puncture Site Right Brachial ABG pH 7.31 L D ABG pCO2 43 ABG pO2 273 H D ABG HCO3 22 ABG O2 Saturation 98 ABG Base Excess -4 L FiO2 80 Sodium Potassium Chloride Carbon Dioxide Anion Gap BUN Creatinine Estim Creat Clear Calc eGFR BUN/Creatinine Ratio Glucose Calculated Osmolality Lactic Acid 2.7 H Calcium Corrected Calcium Phosphorus Magnesium Iron TIBC Iron Saturation Unsat Iron Binding Total Bilirubin AST ALT Alkaline Phosphatase Ammonia Total Protein Albumin Globulin Albumin/Globulin Ratio TSH Free T4 Ur Collection Type Catheter Urine Color Lt-Yellow Urine Clarity Hazy Urine pH 6.0 Ur Specific Gable 1.024 Urine Protein 1+ A Urine Glucose (UA) 4+ A Urine Ketones Negative Urine Blood Negative Urine Nitrite Negative Urine Bilirubin Negative Urine Urobilinogen (Auto) Negative Ur Leukocyte Esterase Positive Urine RBC 0 Urine WBC 9 H Ur Squamous Epith Cells 1 Urine Bacteria None Urine Yeast (Budding) Present A Blood Type Antibody Screen Blood Bank Wristband ID 07/05/24 07/05/24 07/05/24 19:35 20:56 23:16 WBC RBC Hgb Hct MCV MCH MCHC RDW Std Deviation Plt Count Neut % (Auto) Lymph % (Auto) [place] % (Auto) Eos % (Auto) Baso % (Auto) Neut # (Auto) Lymph # (Auto) [place] # (Auto) Eos # (Auto) Baso # (Auto) Immature Gran # (Auto) Absolute Nucleated RBC Immature Gran % Nucleated RBC % Puncture Site Left Radial ABG pH 7.32 L ABG pCO2 41 ABG pO2 299 H D ABG HCO3 21 ABG O2 Saturation 98 ABG Base Excess -4 L FiO2 80 Sodium 141 Potassium 3.9 Chloride 110 H Carbon Dioxide 20.5 Anion Gap 11 BUN 59 H Creatinine 1.6 H Estim Creat Clear Calc 35.5 L eGFR 38 L BUN/Creatinine Ratio 37 H Glucose 145 H D Calculated Osmolality 300 H Lactic Acid 2.4 H Calcium 7.9 L Corrected Calcium 8.5 Phosphorus Magnesium Iron TIBC Iron Saturation Unsat Iron Binding Total Bilirubin 0.3 AST 486 H ALT 357 H Alkaline Phosphatase 72 Ammonia Total Protein 5.4 L Albumin 3.3 L Globulin 2.1 L Albumin/Globulin Ratio 1.6 TSH Free T4 Ur Collection Type Urine Color Urine Clarity Urine pH Ur Specific Gable Urine Protein Urine Glucose (UA) Urine Ketones Urine Blood Urine Nitrite Urine Bilirubin Urine Urobilinogen (Auto) Ur Leukocyte Esterase Urine RBC Urine WBC Ur Squamous Epith Cells Urine Bacteria Urine Yeast (Budding) Blood Type O Positive Antibody Screen NEGATIVE Blood Bank Wristband ID Yes 07/06/24 07/06/24 07/06/24 02:52 04:52 07:30 WBC 9.7 D RBC 3.86 L Hgb 8.3 L Hct 28.2 L MCV 73 L MCH 21.5 L MCHC 29.4 L RDW Std Deviation 57.3 H Plt Count 290 D Neut % (Auto) 93 H Lymph % (Auto) 2 L [place] % (Auto) 4 Eos % (Auto) 1 Baso % (Auto) 0 Neut # (Auto) 9.0 H Lymph # (Auto) 0.2 L [place] # (Auto) 0.4 Eos # (Auto) 0.1 Baso # (Auto) 0.0 Immature Gran # (Auto) 0.03 H Absolute Nucleated RBC 0.03 H Immature Gran % 0 Nucleated RBC % 0 Puncture Site Left Radial ABG pH 7.32 L ABG pCO2 41 ABG pO2 106 D ABG HCO3 21 ABG O2 Saturation 96 ABG Base Excess -5 L FiO2 40 Sodium 147 H Potassium 3.6 Chloride 115 H Carbon Dioxide 20.5 Anion Gap 12 BUN 61 H Creatinine 1.6 H Estim Creat Clear Calc 35.4 L eGFR 38 L BUN/Creatinine Ratio 38 H Glucose 172 H Calculated Osmolality 313 H Lactic Acid 2.2 H 1.3 Calcium 7.9 L Corrected Calcium 8.5 Phosphorus 6.3 H Magnesium 2.9 H Iron < 2 L TIBC 274 Iron Saturation 0 L Unsat Iron Binding 272 Total Bilirubin 0.4 AST 295 H ALT 335 H Alkaline Phosphatase 71 Ammonia 11 Total Protein 5.5 L Albumin 3.3 L Globulin 2.2 L Albumin/Globulin Ratio 1.5 TSH 0.35 L Free T4 Ur Collection Type Urine Color Urine Clarity Urine pH Ur Specific Gable Urine Protein Urine Glucose (UA) Urine Ketones Urine Blood Urine Nitrite Urine Bilirubin Urine Urobilinogen (Auto) Ur Leukocyte Esterase Urine RBC Urine WBC Ur Squamous Epith Cells Urine Bacteria Urine Yeast (Budding) Blood Type Antibody Screen Blood [facility] ID 07/06/24 07:30 WBC RBC Hgb Hct MCV MCH MCHC RDW Std Deviation Plt Count Neut % (Auto) Lymph % (Auto) [place] % (Auto) Eos % (Auto) Baso % (Auto) Neut # (Auto) Lymph # (Auto) [place] # (Auto) Eos # (Auto) Baso # (Auto) Immature Gran # (Auto) Absolute Nucleated RBC Immature Gran % Nucleated RBC % Puncture Site ABG pH ABG pCO2 ABG pO2 ABG HCO3 ABG O2 Saturation ABG Base Excess FiO2 Sodium Potassium Chloride Carbon Dioxide Anion Gap BUN Creatinine Estim Creat Clear Calc eGFR BUN/Creatinine Ratio Glucose Calculated Osmolality Lactic Acid Calcium Corrected Calcium Phosphorus Magnesium Iron TIBC Iron Saturation Unsat Iron Binding Total Bilirubin AST ALT Alkaline Phosphatase Ammonia Total Protein Albumin Globulin Albumin/Globulin Ratio TSH 0.36 L Free T4 0.72 L Ur Collection Type Urine Color Urine Clarity Urine pH Ur Specific Gable Urine Protein Urine Glucose (UA) Urine Ketones Urine Blood Urine Nitrite Urine Bilirubin Urine Urobilinogen (Auto) Ur Leukocyte Esterase Urine RBC Urine WBC Ur Squamous Epith Cells Urine Bacteria Urine Yeast (Budding) Blood Type Antibody Screen Blood [facility] ID ABG Interpretation ABG results: 07/05/24 07/05/24 07/05/24 13:15 17:18 19:35 ABG pH 7.21 L 7.31 L D 7.32 L ABG pCO2 52 H 43 41 ABG pO2 379 H 273 H D 299 H D ABG HCO3 20 22 21 ABG O2 Saturation 98 98 98 ABG Base Excess -7 L -4 L -4 L 07/06/24 04:52 ABG pH 7.32 L ABG pCO2 41 ABG pO2 106 D ABG HCO3 21 ABG O2 Saturation 96 ABG Base Excess -5 L Quality Measures Quality Measures sepsis Current suspected stage: ruled out Possible source: pulmonary Blood cultures ordered: yes Antibiotic ordered: Yes Assessment & Plan Assessment Current Active Medications: Generic Name Dose Route Start Last Admin Trade Name Freq PRN Reason Stop Dose Admin Acetaminophen 650 mg 07/05/24 16:39 Acetaminophen Supp 650 Mg Supp [place] 08/04/24 16:38 Q6HR PRN Fever > 100.4 Baclofen 10 mg 07/06/24 13:09 Baclofen 10 Mg Tablet PO 08/05/24 13:08 TID PRN Muscle Spasticity Dextrose 25 ml 07/06/24 13:39 Dextrose 50%-Water Inj 50 Ml Syringe IV 08/05/24 13:38 Q15MIN PRN BG 50-70 responsive npo pt Dextrose 50 ml 07/06/24 13:39 Dextrose 50%-Water Inj 50 Ml Syringe IV 08/05/24 13:38 Q15MIN PRN BG <50 OR BG <70 & pt unresponsive Glucagon 1 mg 07/06/24 13:39 Glucagon Inj 1 Mg Vial IM Q15MIN PRN BG <70, and no IV access Heparin Sodium (Porcine) 5,000 unit 07/05/24 22:00 07/06/24 13:40 Heparin Sod Inj 5000 Unit/Ml Vial SC 07/19/24 21:59 5,000 unit Q8HR MOOSE Administration Ceftriaxone Sodium/Dextrose 1 gm in 50 mls @ 100 mls/hr 07/06/24 09:45 07/06/24 13:40 Rocephin/D5w 1gm Iv Premix IV 07/10/24 09:44 100 mls/hr QDAY MOOSE Administration Insulin Human Lispro 0 unit 07/06/24 17:00 Insulin Lispro (Admelog) 1 Unit/0.01 Ml Unit SC 08/05/24 16:59 AC MOOSE Protocol Lactulose 20 gm 07/06/24 14:00 07/06/24 15:18 Lactulose Syrup 20 Gm/30 Ml Udc PO 08/05/24 13:59 Not Given TID [facility] Protocol Pregabalin 200 mg 07/06/24 15:30 Pregabalin 50 Mg Capsule PO 08/05/24 15:29 Q12H MOOSE Plan Assessment and plan: Summary: Ms. Vergara is a 54-year-old female with past medical history of poorly controlled type 2 diabetes mellitus with severe complications, status post left BKA, significant neuropathy and severe pain, hypertension and hyperlipidemia who presented to [facility] emergency department on for acute encephalopathy. Patient admitted to the hospital for further workup. #Acute metabolic encephalopathy, improving #? Syncopal event Patient found down by EMS, was given Narcan, no improvement noted was eventually intubated in the emergency department upgraded to ICU and was successfully extubated the next day. Differential diagnosis stroke versus seizure versus overdose versus HHS versus vasovagal. Patient's blood glucose was checked at home by was around 600, osmolality 318 on admission, CTA head and neck was negative, CT head negative Plan: -Neurochecks every 4 hours -Follow-up MRI -Follow-up EEG -Reorient frequently -Currently weaning off of sedation #Aspiration pneumonia #Acute hypoxic respiratory failure, resolving CT scan showed possible aspiration pneumonia, did have significant respiratory depression which has resolved, patient extubated. - Patient is on IV Rocephin - Will follow ET tube culture, blood culture - Monitor vitals closely - Follow CBC in a.m. #Type 2 diabetes mellitus, insulin-dependent #Severe diabetic neuropathy Hemoglobin A1c 7.9 - Sliding scale insulin - Hypoglycemia protocol - Monitor fingersticks - Resumed home dose Lyrica and baclofen - Will consider resuming oxcarbazepine in a.m. #Acute kidney injury Likely prerenal in setting of dehydration Baseline creatinine 1.2, currently 1.8 - Follow renal panel in a.m. - Avoid nephrotoxic agents #Constipation Patient is on opiates outpatient, did have significant constipation. Will start on bowel regimen in a.m., started on dysphagia diet, will advance as tolerated. - Lactulose 20 mg p.o. 3 times daily #Hypertension Blood pressure soft will continue to monitor DVT prophylaxis: Heparin every 8 hours GI prophylaxis: IV Protonix Diet: Dysphagia diet Lines: Peripheral IV Code status: Full code Case discussed with Attending Dr. Nation. Aileen Macias PGY1 Disclaimer: This note was dictated by speech recognition. Minor errors in electrical development engineer may be present due to voice recognition software. Attending Provider Attestation/Addendum I have discussed and was present for the essential components of the history, physical examination, diagnosis, and treatment plan with the resident. I agree with the patient's care as documented by the resident and amended herein by me. Mike Nation DO. Patient seen and evaluated this AM. Added basal bolus insulin along with sliding scale, will continue to monitor blood glucose very closely and reassess her acute encephalopathy tomorrow. Daughter was at bedside, usual mentation is ANO x 4, no past episodes of encephalopathy as present now. Continue to monitor closely and reevaluate tomorrow morning Although this document has been carefully reviewed, there may still be some phonetic and other typographical errors. These errors are purely grammatical due to imperfections in the software program and should not be construed in any way to compromise the substance of the patient's medical care during this visit.
[2024-07-06] MEDS: PREGABALIN 50 MG CAPSULE 200 MG PO ×2 (15:42→20:35)
[2024-07-06] MEDS: INSULIN LISPRO (AdmeLOG) 1 UNIT/0.01 ML UNIT SC (17:32)
[2024-07-06] MEDS: BACLOFEN 10 MG TABLET PO (19:49)
[2024-07-06] MEDS: INSULIN GLARGINE (Lantus) 5 UNIT/0.05 ML (PER 5 UNITS) 15 UNIT SC (21:16)
[2024-07-06] MEDS: LACTULOSE SYRUP 20 GM/30 ML UDC PO (21:16)
--- NOTE | 2024-07-06 22:04 | PC.NURSE ---
Dr. Ochoa notified about patient agitation and being inconsolable. Dr. Whelan at bedside with patient endorsing that she has pain all over . PRN medications previously given in MAR with no relief patient vitals signs are within normal limits.
[2024-07-06] MEDS: HYDROmorphone INJ 2 MG/ML VIAL 0.5 MG IVP (22:33)
[2024-07-07] VITALS (91 sets, daily range): BP systolic 133–186; BP diastolic 84–96; PULSE 86–117; RESP 9–98; TEMP 36.3; O2SAT 89–99; BMI 30.5
[2024-07-07 02:23] LABS: Hepatitis A Antibody IgM Non Reactive (Non React); Hepatitis B Core Antibody IgM Non Reactive (Non React); Hepatitis B Surface Antigen Non Reactive (Non React); Hepatitis C Antibody Non Reactive (Non React)
[2024-07-07 06:30] LABS: Basophils % (Auto) 0 % (0-2.5); Eosinophils # (Auto) 0.1 Thou/mm3 (0.0-0.5); Eosinophils % (Auto) 1 % (0-10); Hematocrit 28.9 % (36.0-46.0); Immature Granulocytes % (Auto) 0 % (0-0); Immature Granulocytes Auto 0.04 Thou/mm3 (0.00-0.00); Lymphocytes # (Auto) 0.3 Thou/mm3 (1.0-4.8); Lymphocytes % (Auto) 3 % (10-50); Mean Corpuscular HGB Conc 29.4 g/dl (31.0-37.0); Mean Corpuscular Hemoglobin 21.4 pg (25.0-35.0); Mean Corpuscular Volume 73 fL (80-100); Monocytes # (Auto) 0.6 Thou/mm3 (0.0-0.8); Monocytes % (Auto) 6 % (0-12); Neutrophils # (Auto) 9.2 Thou/mm3 (1.8-7.7); Neutrophils % (Auto) 90 % (37-80); Nucleated Red Blood Cell % 0 /100 WBC (0); Platelet Count 299 Thou/mm3 (140-440); RDW Standard Deviation 56.1 fL (36.4-46.3); Red Blood Count 3.97 Miln/mm3 (4.00-5.20); White Blood Count 10.2 Thou/mm3 (3.6-11.0)
[2024-07-07 06:46] LABS: Alanine Aminotransferase 374 U/L (10-49); Albumin, Serum 3.6 gm/dL (3.5-5.0); Albumin/Globulin Ratio 1.4 (1.2-2.2); Alkaline Phosphatase 83 U/L (46-116); Anion Gap 10 (7-16); Aspartate Amino Transferase 289 U/L (0-34); BUN/Creatinine Ratio 44 Ratio (12-20); Bilirubin,Total 0.5 mg/dL (0.3-1.2); Blood Urea Nitrogen 35 mg/dL (9-23); Calcium 8.6 mg/dL (8.3-10.6); Calcium (Corrected) 8.9 mg/dL (8.5-10.1); Carbon Dioxide 23.2 mMol/L (20.0-31.0); Chloride 109 mMol/L (98-107); Creatinine (Component) 0.8 mg/dL (0.6-1.3); Estimated Creatinine Clearance 70.7 mL/min (>60); Globulin 2.6 gm/dL (2.3-3.5); Glucose 138 mg/dL (74-106); Magnesium 2.9 mg/dL (1.6-2.6); Osmolality,Calculated 293 (275-295); Phosphorous 2.2 mg/dL (2.4-5.1); Potassium 2.9 mMol/L (3.4-5.1); Sodium 142 mMol/L (136-145); Total Protein 6.2 gm/dL (5.7-8.2); eGFR > 60 See Note
[2024-07-07 06:54] LABS: Hemoglobin 8.5 g/dL (12.0-16.0)
[2024-07-07] MEDS: BACLOFEN 10 MG TABLET PO (07:28)
[2024-07-07] MEDS: PREGABALIN 50 MG CAPSULE 200 MG PO (09:08)
[2024-07-07] MEDS: amLODIPine BESYLATE 5 MG TABLET PO (09:10)
[2024-07-07] MEDS: POT PHOS 15 mMol in NS 250 ML 15 MMOL/250 ML BAG 62.5 MMOL IV (09:12)
[2024-07-07] MEDS: cefTRIAXone/D5w 1gm IV premix 1 GM/50 ML BAG IV (09:12)
[2024-07-07] MEDS: HEPARIN SOD INJ 5000 UNIT/ML VIAL SC (09:13)
[2024-07-07] MEDS: INSULIN GLARGINE (Lantus) 5 UNIT/0.05 ML (PER 5 UNITS) 15 UNIT SC (09:27)
--- NOTE | 2024-07-07 15:07 | EVENTNT_ITS ---
<Statement entered by Oliverio Cruz MD - 07/08/24 08:05> I discussed with and supervised the sales intern physician involved in the care of this patient. Patient assessment and plan was discussed with entire medicine team, including my attending. I agree with the assessment and plan as documented by sales intern doctor. Patient care was discussed with my attending physician Dr. Rios Cruz, PGY-2 Documentation for date of: 07/07/24 Event Note Event Note: Patient decided to leave AGAINST MEDICAL ADVICE, risks and benefits of leaving AGAINST MEDICAL ADVICE explained to the patient. Patient is pending MRI and further workup for underlying encephalopathy, patient refused all intervention and workup. Patient is alert and oriented x 3, at bedside. Patient verbalized that they will follow-up with neurologist outpatient. Hospital Course: Ms. Vergara is a 54-year-old female with past medical history of type II diabetes mellitus with significant complications status post left BKA diabetic neuropathy and severe chronic pain, hypertension and hyperlipidemia who presented to [facility] emergency department on 07/05/2024 for acute encephalopathy. Patient was found to have GCS of 3, was intubated and was admitted to intensive care unit for further management. CT scan and CTA of the head was negative eventually patient was extubated on 07/06/2024 was started on sliding scale insulin and was downgraded to telemetry for further management. Patient's MRI and EEG were pending, blood glucose was well-managed on sliding scale insulin, however patient refused all further treatment, at bedside and left hospital AGAINST MEDICAL ADVICE. Hospital diagnosis: #Acute encephalopathy, unknown etiology #?Syncopal event #Aspiration pneumonia #Acute hypoxic respiratory failure #Status post extubation 07/06/24 #Type 2 diabetes mellitus, insulin-dependent #Status post left BKA #Severe diabetic neuropathy #Acute kidney injury #Constipation #Hypertension Case discussed with Attending Dr. Nation and Dr. Cruz PGY2. Aileen Macias PGY1 Disclaimer: This note was dictated by speech recognition. Minor errors in mask design engineer may be present due to voice recognition software. Patient seen and evaluated bedside this morning, patient decided to leave AGAINST MEDICAL ADVICE despite us explaining all the potential risks to include . The patient understood, the patient's was at bedside willing to take the risk and decided to leave
== END 2024-07-07 10:39 | disposition left against medical advice (07) | DRG 208 ==
LOC: SERX 14:26 → SERHOLD 16:51 → S2SX 18:14
PROVIDERS: Student in an Organized Health Care Education/Training Program; Admitting Provider Internal Medicine; Emergency Provider Emergency Medicine; PCP Specialist; Visit Provider Student in an Organized Health Care Education/Training Program
DX: J96.01 Acute respiratory failure with hypoxia (principal); J18.9 Pneumonia, unspecified organism; G93.41 Metabolic encephalopathy; J69.0 Pneumonitis due to inhalation of food and vomit; N17.9 Acute kidney failure, unspecified; R57.9 Shock, unspecified; I50.32 Chronic diastolic (congestive) heart failure; E87.20 Acidosis, unspecified; E11.40 Type 2 diabetes mellitus with diabetic neuropathy, unspecified; I11.0 Hypertensive heart disease with heart failure; E78.5 Hyperlipidemia, unspecified; D64.9 Anemia, unspecified; G89.29 Other chronic pain; E87.8 Other disorders of electrolyte and fluid balance, not elsewhere classified; G93.89 Other specified disorders of brain; K59.00 Constipation, unspecified; M48.02 Spinal stenosis, cervical region; M79.606 Pain in leg, unspecified; Z79.4 Long term (current) use of insulin; Z79.84 Long term (current) use of oral hypoglycemic drugs; Z89.512 Acquired absence of left leg below knee; Z99.3 Dependence on wheelchair
CPT/HCPCS: 36415; 36600; 70450; 70496; 70498; 71045; 71250; 72125; 74176; 80053; 80074; 80307; 81001; 82140; 82270; 82803; 83540; 83550; 83605; 83690; 83735; 84100; 84145; 84439; 84443; 84484; 85014; 85018; 85025; 85610; 85730; 86850; 86900; 86901; 87040; 87081; 87205; 93005; 94002; 94003; 95816; 96361; 96365; 96374; 99291; A4649; J0696; J1643; J1815; J2470; J2543; J2704; J3010; J3370; J3490; J7030; J7040; J7120; J7999; Q9967; A9270

== ENCOUNTER → 2024-09-04 | Outpatient (CLI) | payer OTHER, SELFPAY ==
[2024-09-04 16:35] LABS: Misc Send Out* See Sep Rpt
== END | disposition home or self-care (01) ==
LOC: COPL 16:12
PROVIDERS: PCP Specialist; Referring Provider Pain Medicine Interventional Pain Medicine; Visit Provider Pain Medicine Interventional Pain Medicine
DX: Z79.891 Long term (current) use of opiate analgesic (principal)
CPT/HCPCS: 80171; 80198; 80320; 80321; 80323; 80326; 80330; 80333; 80337; 80338; 80340; 80344; 80345; 80346; 80348; 80349; 80353; 80354; 80356; 80357; 80358; 80359; 80360; 80361; 80364; 80365; 80366; 80367; 80368; 80370; 80372; 80373; 80377; 83992

== ENCOUNTER → 2024-09-22 | Outpatient (CLI) | payer OTHER, SELFPAY ==
[2024-09-22 15:18] LABS: Collection Type, Urine Clean Catch
[2024-09-22 16:56] LABS: Bacteria,Urine Rare; Bilirubin,Urine Negative (Negative); Blood,Urine Negative (Negative); Budding Yeast,Urine Present; Clarity,Urine Turbid (Clear/Hazy); Color,Urine Lt-Yellow (Lt Yel-Yel); Glucose, Urine 4+ (Negative); Ketones,Urine Negative (Negative); Leukocyte Esterase,Urine Positive (Negative); Nitrite,Urine Negative (Negative); PH,Urine 6.0 (5.0-7.0); Protein,Urine Trace (Neg - Trace); RBC,Urine 24 /hpf (0-3); Specific Gravity,Urine 1.028 (1.001-1.035); Squamous Epithelial Cell,Urine < 1 /hpf (0-5); Urobilinogen,Urine Negative mg/dL (0.0-1.0); WBC,Urine 31 /hpf (0-5)
== END | disposition home or self-care (01) ==
LOC: SLDO 14:46
PROVIDERS: PCP Specialist; Referring Provider Specialist; Visit Provider Specialist
DX: R30.0 Dysuria (principal)
CPT/HCPCS: 81001; 87077; 87086; 87186

== ENCOUNTER → 2024-10-13 | Outpatient (CLI) | payer OTHER, SELFPAY ==
[2024-10-13 15:48] LABS: Collection Type, Urine Clean Catch; RBC,Urine 0 /hpf (0-3)
[2024-10-13 16:40] LABS: Glucose Estimated Average 186 mg/dL (80-131); Hemoglobin A1C 8.1 % Hgb (4.8-6.0)
[2024-10-13 16:47] LABS: Creatinine MALB Rnd Ur 16 mg/dL (30-125); Microalbumin Creat Ratio 2081 mg/gCrea (<30); Microalbumin, Random Urine 333 mg/L (0-300)
[2024-10-13 16:48] LABS: Alanine Aminotransferase 20 U/L (10-49); Albumin, Serum 4.0 gm/dL (3.5-5.0); Albumin/Globulin Ratio 1.7 (1.2-2.2); Alkaline Phosphatase 100 U/L (46-116); Anion Gap 11 (7-16); Aspartate Amino Transferase 28 U/L (0-34); BUN/Creatinine Ratio 58 Ratio (12-20); Bilirubin,Total 0.3 mg/dL (0.3-1.2); Blood Urea Nitrogen 23 mg/dL (9-23); Calcium 9.5 mg/dL (8.3-10.6); Calcium (Corrected) 9.5 mg/dL (8.5-10.1); Carbon Dioxide 26.2 mMol/L (20.0-31.0); Chloride 108 mMol/L (98-107); Creatinine (Component) 0.4 mg/dL (0.6-1.3); Globulin 2.4 gm/dL (2.3-3.5); Glucose 126 mg/dL (74-106); Osmolality,Calculated 294 (275-295); Potassium 4.2 mMol/L (3.4-5.1); Sodium 145 mMol/L (136-145); Total Protein 6.4 gm/dL (5.7-8.2); eGFR > 60 See Note
[2024-10-13 17:56] LABS: Bacteria,Urine 4+; Bilirubin,Urine Negative (Negative); Blood,Urine Negative (Negative); Budding Yeast,Urine Present; Clarity,Urine Turbid (Clear/Hazy); Color,Urine Yellow (Lt Yel-Yel); Glucose, Urine 4+ (Negative); Ketones,Urine Negative (Negative); Leukocyte Esterase,Urine Positive (Negative); Nitrite,Urine Negative (Negative); PH,Urine 5.5 (5.0-7.0); Protein,Urine 1+ (Neg - Trace); Specific Gravity,Urine 1.030 (1.001-1.035); Squamous Epithelial Cell,Urine 3 /hpf (0-5); Urobilinogen,Urine Negative mg/dL (0.0-1.0); WBC,Urine 54 /hpf (0-5)
[2024-10-13 18:14] LABS: Basophils # (Auto) 0.0 Thou/mm3 (0.0-0.2); Basophils % (Auto) 1 % (0-2.5); Eosinophils # (Auto) 0.3 Thou/mm3 (0.0-0.5); Eosinophils % (Auto) 4 % (0-10); Hematocrit 32.2 % (36.0-46.0); Hemoglobin 9.6 g/dL (12.0-16.0); Immature Granulocytes Auto 0.02 Thou/mm3 (0.00-0.00); Lymphocytes # (Auto) 1.0 Thou/mm3 (1.0-4.8); Lymphocytes % (Auto) 12 % (10-50); Mean Corpuscular HGB Conc 29.8 g/dl (31.0-37.0); Mean Corpuscular Hemoglobin 24.2 pg (25.0-35.0); Mean Corpuscular Volume 81 fL (80-100); Monocytes # (Auto) 0.9 Thou/mm3 (0.0-0.8); Monocytes % (Auto) 11 % (0-12); Neutrophils # (Auto) 6.1 Thou/mm3 (1.8-7.7); Neutrophils % (Auto) 73 % (37-80); Nucleated Red Blood Cell # 0.00 Thou/mm3 (0.00-0.00); Nucleated Red Blood Cell % 0 /100 WBC (0); Platelet Count 337 Thou/mm3 (140-440); RDW Standard Deviation 48.1 fL (36.4-46.3); Red Blood Count 3.97 Miln/mm3 (4.00-5.20); White Blood Count 8.4 Thou/mm3 (3.6-11.0)
== END | disposition home or self-care (01) ==
LOC: SLDO 15:14
PROVIDERS: PCP Specialist; Referring Provider Specialist; Visit Provider Specialist
DX: E11.65 Type 2 diabetes mellitus with hyperglycemia (principal); D64.9 Anemia, unspecified; I10 Essential (primary) hypertension; N39.0 Urinary tract infection, site not specified
CPT/HCPCS: 36415; 80053; 81001; 82043; 82570; 83036; 85025; 87077; 87086; 87186

== ENCOUNTER → 2024-11-03 | Outpatient (CLI) | payer OTHER, SELFPAY ==
[2024-11-03 13:47] LABS: Collection Type, Urine Clean Catch; RBC,Urine 0 /hpf (0-3)
[2024-11-03 14:37] LABS: Bacteria,Urine Rare; Bilirubin,Urine Negative (Negative); Blood,Urine Negative (Negative); Clarity,Urine Turbid (Clear/Hazy); Color,Urine Lt-Yellow (Lt Yel-Yel); Glucose, Urine 4+ (Negative); Ketones,Urine Negative (Negative); Leukocyte Esterase,Urine Positive (Negative); Nitrite,Urine Negative (Negative); PH,Urine 6.5 (5.0-7.0); Protein,Urine 1+ (Neg - Trace); Specific Gravity,Urine 1.021 (1.001-1.035); Squamous Epithelial Cell,Urine < 1 /hpf (0-5); Urobilinogen,Urine Negative mg/dL (0.0-1.0); WBC,Urine < 1 /hpf (0-5)
== END | disposition home or self-care (01) ==
LOC: SLDO 13:30
PROVIDERS: PCP Specialist; Referring Provider Specialist; Visit Provider Specialist
DX: N39.0 Urinary tract infection, site not specified (principal)
CPT/HCPCS: 81001; 87077; 87086; 87186

== ENCOUNTER → 2024-11-13 | Outpatient (CLI) | payer OTHER, SELFPAY ==
[2024-11-13 12:38] LABS: Collection Type, Urine Clean Catch
[2024-11-13 13:21] LABS: Bilirubin,Urine Negative (Negative); Blood,Urine Negative (Negative); Clarity,Urine Clear (Clear/Hazy); Color,Urine Lt-Yellow (Lt Yel-Yel); Glucose, Urine 4+ (Negative); Ketones,Urine Negative (Negative); Leukocyte Esterase,Urine Negative (Negative); Nitrite,Urine Negative (Negative); PH,Urine 5.5 (5.0-7.0); Protein,Urine 1+ (Neg - Trace); RBC,Urine 19 /hpf (0-3); Specific Gravity,Urine 1.020 (1.001-1.035); Squamous Epithelial Cell,Urine < 1 /hpf (0-5); Urobilinogen,Urine Negative mg/dL (0.0-1.0); WBC,Urine < 1 /hpf (0-5)
== END | disposition home or self-care (01) ==
LOC: SLDO 12:24
PROVIDERS: Referring Provider Specialist; Visit Provider Specialist
DX: N39.0 Urinary tract infection, site not specified (principal)
CPT/HCPCS: 81001; 87086

== ENCOUNTER → 2024-11-14 | Outpatient (CLI) | payer OTHER, SELFPAY ==
--- NOTE | 2024-11-14 15:00 | XR_ITS ---
Examination: Retroperitoneal ultrasound, complete Technique: Multiple high resolution grayscale images of the retroperitoneum obtained, including kidneys and bladder. Exam date and time:November 14, 2024, 1512 hrs. Indications: Recurrent urinary tract infections beginning 3 months ago. Findings: Right kidney 10.4 cm cortex 2.3 cm Left kidney 11.5 cm cortex 1.9 cm Mild renal parenchymal scar formation. No bladder mass or bladder calculi. Bladder prevoid by 163 cc.. Impression: Mild bilateral renal parenchymal scar formation. No hydronephrosis or renal calculi.
== END | disposition home or self-care (01) ==
PROVIDERS: PCP Specialist; Referring Provider Specialist; Visit Provider Specialist
DX: N28.89 Other specified disorders of kidney and ureter (principal)
CPT/HCPCS: 76770

== ENCOUNTER → 2024-11-25 | Outpatient (CLI) | payer OTHER, SELFPAY ==
[2024-11-25 10:18] LABS: Collection Type, Urine Clean Catch; Squamous Epithelial Cell,Urine 0 /hpf (0-5)
[2024-11-25 12:12] LABS: Bacteria,Urine 3+; Bilirubin,Urine Negative (Negative); Blood,Urine Negative (Negative); Budding Yeast,Urine Present; Color,Urine Lt-Yellow (Lt Yel-Yel); Glucose, Urine 3+ (Negative); Ketones,Urine Negative (Negative); Leukocyte Esterase,Urine Positive (Negative); Nitrite,Urine Positive (Negative); PH,Urine 6.0 (5.0-7.0); Protein,Urine 1+ (Neg - Trace); RBC,Urine 15 /hpf (0-3); Specific Gravity,Urine 1.009 (1.001-1.035); Urobilinogen,Urine Negative mg/dL (0.0-1.0); WBC,Urine 12 /hpf (0-5)
[2024-11-25 12:29] LABS: Clarity,Urine Hazy (Clear/Hazy)
== END | disposition home or self-care (01) ==
LOC: SLDO 09:50
PROVIDERS: PCP Specialist; Referring Provider Specialist; Visit Provider Specialist
DX: N39.0 Urinary tract infection, site not specified (principal)
CPT/HCPCS: 81001; 87077; 87086; 87186

== ENCOUNTER → 2024-12-10 | Outpatient (CLI) | payer OTHER, SELFPAY ==
[2024-12-10 14:42] LABS: Basophils # (Auto) 0.0 Thou/mm3 (0.0-0.2); Basophils % (Auto) 0 % (0-2.5); Eosinophils # (Auto) 0.2 Thou/mm3 (0.0-0.5); Eosinophils % (Auto) 2 % (0-10); Hematocrit 38.1 % (36.0-46.0); Hemoglobin 11.4 g/dL (12.0-16.0); Immature Granulocytes Auto 0.06 Thou/mm3 (0.00-0.00); Lymphocytes # (Auto) 0.7 Thou/mm3 (1.0-4.8); Lymphocytes % (Auto) 8 % (10-50); Mean Corpuscular HGB Conc 29.9 g/dl (31.0-37.0); Mean Corpuscular Hemoglobin 23.5 pg (25.0-35.0); Mean Corpuscular Volume 79 fL (80-100); Monocytes # (Auto) 0.7 Thou/mm3 (0.0-0.8); Monocytes % (Auto) 8 % (0-12); Neutrophils # (Auto) 7.4 Thou/mm3 (1.8-7.7); Neutrophils % (Auto) 81 % (37-80); Nucleated Red Blood Cell # 0.00 Thou/mm3 (0.00-0.00); Nucleated Red Blood Cell % 0 /100 WBC (0); Platelet Count 208 Thou/mm3 (140-440); RDW Standard Deviation 52.9 fL (36.4-46.3); Red Blood Count 4.85 Miln/mm3 (4.00-5.20); White Blood Count 9.2 Thou/mm3 (3.6-11.0)
[2024-12-10 14:51] LABS: Albumin, Serum 4.1 gm/dL (3.5-5.0); Anion Gap 12 (7-16); BUN/Creatinine Ratio 42 Ratio (12-20); Blood Urea Nitrogen 25 mg/dL (9-23); Calcium 8.9 mg/dL (8.3-10.6); Calcium (Corrected) 8.9 mg/dL (8.5-10.1); Carbon Dioxide 25.3 mMol/L (20.0-31.0); Chloride 108 mMol/L (98-107); Creatinine (Component) 0.6 mg/dL (0.6-1.3); Glucose 224 mg/dL (74-106); Osmolality,Calculated 300 (275-295); Phosphorous 3.6 mg/dL (2.4-5.1); Potassium 3.7 mMol/L (3.4-5.1); Sodium 145 mMol/L (136-145); eGFR > 60 See Note
== END | disposition home or self-care (01) ==
LOC: SLDO 13:54
PROVIDERS: PCP Specialist; Referring Provider Specialist; Visit Provider Specialist
DX: N39.0 Urinary tract infection, site not specified (principal)
CPT/HCPCS: 36415; 80069; 85025

== ENCOUNTER → 2024-12-16 | Outpatient (CLI) | payer OTHER, SELFPAY ==
[2024-12-16 08:20] LABS: Collection Type, Urine Clean Catch
[2024-12-16 09:28] LABS: Bacteria,Urine 4+; Bilirubin,Urine Negative (Negative); Blood,Urine Negative (Negative); Budding Yeast,Urine Present; Color,Urine Lt-Yellow (Lt Yel-Yel); Glucose, Urine 4+ (Negative); Ketones,Urine Negative (Negative); Leukocyte Esterase,Urine Positive (Negative); Nitrite,Urine Positive (Negative); PH,Urine 6.0 (5.0-7.0); Protein,Urine 1+ (Neg - Trace); RBC,Urine 59 /hpf (0-3); Specific Gravity,Urine 1.020 (1.001-1.035); Squamous Epithelial Cell,Urine < 1 /hpf (0-5); Urobilinogen,Urine Negative mg/dL (0.0-1.0); WBC,Urine 40 /hpf (0-5)
[2024-12-16 09:37] LABS: Clarity,Urine Hazy (Clear/Hazy)
== END | disposition home or self-care (01) ==
LOC: SLDO 08:16
PROVIDERS: PCP Specialist; Referring Provider Specialist; Visit Provider Specialist
DX: N39.0 Urinary tract infection, site not specified (principal)
CPT/HCPCS: 81001; 87077; 87086; 87186

== ENCOUNTER → 2024-12-26 | Outpatient (CLI) | payer OTHER, SELFPAY ==
[2024-12-26 09:38] LABS: Collection Type, Urine Clean Catch
[2024-12-26 11:01] LABS: Bilirubin,Urine Negative (Negative); Blood,Urine Negative (Negative); Clarity,Urine Clear (Clear/Hazy); Color,Urine Lt-Yellow (Lt Yel-Yel); Glucose, Urine 4+ (Negative); Ketones,Urine Negative (Negative); Leukocyte Esterase,Urine Negative (Negative); Nitrite,Urine Negative (Negative); PH,Urine 6.5 (5.0-7.0); Protein,Urine Trace (Neg - Trace); RBC,Urine 23 /hpf (0-3); Specific Gravity,Urine 1.027 (1.001-1.035); Squamous Epithelial Cell,Urine < 1 /hpf (0-5); Urobilinogen,Urine Negative mg/dL (0.0-1.0); WBC,Urine 6 /hpf (0-5)
== END | disposition home or self-care (01) ==
LOC: SLDO 09:25
PROVIDERS: PCP Specialist; Referring Provider Specialist; Visit Provider Specialist
DX: N39.0 Urinary tract infection, site not specified (principal)
CPT/HCPCS: 81001; 87077; 87086; 87186

== ENCOUNTER → 2025-01-05 | Outpatient (CLI) | payer OTHER, SELFPAY ==
[2025-01-05 09:06] LABS: Collection Type, Urine Clean Catch; RBC,Urine 0 /hpf (0-3)
[2025-01-05 11:02] LABS: Bilirubin,Urine Negative (Negative); Blood,Urine Negative (Negative); Budding Yeast,Urine Present; Color,Urine Lt-Yellow (Lt Yel-Yel); Glucose, Urine 4+ (Negative); Ketones,Urine Negative (Negative); Leukocyte Esterase,Urine Negative (Negative); Nitrite,Urine Negative (Negative); PH,Urine 6.5 (5.0-7.0); Protein,Urine 1+ (Neg - Trace); Specific Gravity,Urine 1.033 (1.001-1.035); Squamous Epithelial Cell,Urine 1 /hpf (0-5); Urobilinogen,Urine Negative mg/dL (0.0-1.0); WBC,Urine 1 /hpf (0-5)
[2025-01-05 11:04] LABS: Clarity,Urine Hazy (Clear/Hazy)
== END | disposition home or self-care (01) ==
LOC: SLDO 08:06
PROVIDERS: Referring Provider Specialist; Visit Provider Specialist
DX: N39.0 Urinary tract infection, site not specified (principal)
CPT/HCPCS: 81001; 87077; 87086; 87186

== ENCOUNTER → 2025-01-29 | Outpatient (CLI) | payer OTHER, SELFPAY | END | disposition home or self-care (01) | PROVIDERS: PCP Specialist; Referring Provider Specialist; Visit Provider Student in an Organized Health Care Education/Training Program | DX: E11.621 Type 2 diabetes mellitus with foot ulcer (principal); L97.812 Non-pressure chronic ulcer of other part of right lower leg with fat layer exposed; L97.512 Non-pressure chronic ulcer of other part of right foot with fat layer exposed; Z79.4 Long term (current) use of insulin; Z89.522 Acquired absence of left knee; G61.0 Guillain-Barre syndrome; F41.9 Anxiety disorder, unspecified; E11.40 Type 2 diabetes mellitus with diabetic neuropathy, unspecified; I10 Essential (primary) hypertension; R60.0 Localized edema; Z99.3 Dependence on wheelchair | CPT/HCPCS: 11043; 99213; A9270; G0463 ==

== ENCOUNTER → 2025-02-02 | Outpatient (CLI) | payer OTHER, SELFPAY | END | disposition home or self-care (01) | LOC: SLDO 14:10 | PROVIDERS: Referring Provider Student in an Organized Health Care Education/Training Program; Visit Provider Student in an Organized Health Care Education/Training Program | DX: E11.622 Type 2 diabetes mellitus with other skin ulcer (principal); I70.232 Atherosclerosis of native arteries of right leg with ulceration of calf | CPT/HCPCS: 87070; 87075; 87077; 87186; 87205 ==

== ENCOUNTER → 2025-02-05 | Outpatient (CLI) | payer OTHER, SELFPAY | END | disposition home or self-care (01) | LOC: SWHD 14:53 | PROVIDERS: PCP Specialist; Referring Provider Specialist; Visit Provider Student in an Organized Health Care Education/Training Program | DX: E11.621 Type 2 diabetes mellitus with foot ulcer (principal); L97.812 Non-pressure chronic ulcer of other part of right lower leg with fat layer exposed; L97.512 Non-pressure chronic ulcer of other part of right foot with fat layer exposed; Z79.4 Long term (current) use of insulin; Z89.522 Acquired absence of left knee; G61.0 Guillain-Barre syndrome; F41.9 Anxiety disorder, unspecified; E11.40 Type 2 diabetes mellitus with diabetic neuropathy, unspecified; I10 Essential (primary) hypertension; R60.0 Localized edema; Z99.3 Dependence on wheelchair | CPT/HCPCS: 11042; A9270 ==

== ENCOUNTER → 2025-02-24 | Outpatient (CLI) | payer OTHER, SELFPAY | END | disposition home or self-care (01) | LOC: SWHD 15:14 | PROVIDERS: PCP Specialist; Referring Provider Specialist; Visit Provider Student in an Organized Health Care Education/Training Program | DX: E11.621 Type 2 diabetes mellitus with foot ulcer (principal); L97.812 Non-pressure chronic ulcer of other part of right lower leg with fat layer exposed; Z79.4 Long term (current) use of insulin; Z89.522 Acquired absence of left knee; G61.0 Guillain-Barre syndrome; F41.9 Anxiety disorder, unspecified; E11.40 Type 2 diabetes mellitus with diabetic neuropathy, unspecified; I10 Essential (primary) hypertension; R60.0 Localized edema; Z99.3 Dependence on wheelchair | CPT/HCPCS: 97597; A9270 ==

== ENCOUNTER → 2025-03-10 | Outpatient (CLI) | payer OTHER, SELFPAY | END | disposition home or self-care (01) | LOC: SWHD 14:32 | PROVIDERS: PCP Specialist; Referring Provider Specialist; Visit Provider Surgery | DX: E11.621 Type 2 diabetes mellitus with foot ulcer (principal); L97.812 Non-pressure chronic ulcer of other part of right lower leg with fat layer exposed; L97.512 Non-pressure chronic ulcer of other part of right foot with fat layer exposed; Z79.4 Long term (current) use of insulin; Z89.522 Acquired absence of left knee; G61.0 Guillain-Barre syndrome; F41.9 Anxiety disorder, unspecified; E11.40 Type 2 diabetes mellitus with diabetic neuropathy, unspecified; I10 Essential (primary) hypertension; R60.0 Localized edema; Z99.3 Dependence on wheelchair | CPT/HCPCS: 11042; A9270 ==